=== PATIENT | female | born 1970 | race Caucasian/White ===

== ENCOUNTER 2022-03-18 08:47 | Outpatient (CLI) | payer OTHER, SELFPAY ==
[2022-03-18 19:48] LABS: CRP < 0.5 mg/dL (<1.0); Erythrocyte Sedimentation Rate 12 mm/hr (0-20)
[2022-03-18 20:04] LABS: Rheumatoid Factor < 8.6 IU/ML (<12)
[2022-03-21 12:30] LABS: Anti Cyclic Citrullinated Pept <16 Units (<20)
[2022-03-25 09:55] LABS: ANA Cascade Screen Positive (Negative)
[2022-03-25 11:23] LABS: Chromatin (Nucleosomal) Ab <1.0; RNP Antibody <1.0; Sm Antibody <1.0; Sm/RNP Antibody <1.0
[2022-03-25 13:25] LABS: Jo-1 Antibody <1.0; Sjogren's Antibody (SS-B) <1.0
== END 2022-03-18 08:48 | disposition home or self-care (01) ==
PROVIDERS: PCP Family Medicine; Visit Provider Family Medicine
DX: M25.50 Pain in unspecified joint (principal)
CPT/HCPCS: 36415; 85652; 86038; 86140; 86200; 86430

== ENCOUNTER → 2022-12-08 12:45 | Outpatient (CLI) | payer OTHER, SELFPAY ==
--- NOTE | ~2022-12-08 | MM_ITS ---
EXAMINATION: MM screening agapito BI w nicho HISTORY: Screening TECHNIQUE: Craniocaudal and mediolateral oblique 3-D tomosynthesis images were obtained and synthetic 2-D images were generated. CAD analysis was submitted and interpreted. COMPARISON: No prior mammogram is available for comparison at this institution. BREAST PARENCHYMAL COMPOSITION: The breasts are heterogeneously dense, which may obscure small masses . FINDINGS: There is no evidence of suspicious mass, calcification, or architectural distortion to sugg est malignancy in either breast. There has been no suspicious interval change. IMPRESSION: 1. No mammographic evidence of malignancy. 2. Recommend routine screening mammography in one year. BI-RADS Category 1: Negative Reviewed, dictated and finalized at location A.
== END ==
PROVIDERS: PCP Nurse Practitioner Obstetrics & Gynecology; Visit Provider Nurse Practitioner Obstetrics & Gynecology
DX: Z12.31 Encounter for screening mammogram for malignant neoplasm of breast (principal)
CPT/HCPCS: 77063; 77067

== ENCOUNTER → 2023-01-14 12:36 | Outpatient (CLI) | payer OTHER, SELFPAY | PROVIDERS: PCP Nurse Practitioner; Visit Provider Nurse Practitioner | DX: M25.561 Pain in right knee (principal); M25.562 Pain in left knee | CPT/HCPCS: 73564 ==

== ENCOUNTER 2023-02-10 07:59 | Outpatient (CLI) | payer OTHER, SELFPAY ==
[2023-02-10 15:51] LABS: Basophils Percent Auto 0.5 % (0.2-1.2); Eosinophils Absolute Auto 0.1 K/mm3 (0-0.3); Eosinophils Percent Auto 5.2 % (0-4.4); Hematocrit 39.7 % (37.0-47.0); Hemoglobin 13.4 g/dL (12.0-15.0); Immature Granulocyte Absolute 0.01 K/mm3 (0.00-0.031); Immature Granulocyte Percent A 0.5 % (0-0.5); Lymphocytes Percent Auto 33.2 % (18.3-44.2); Mean Corpuscular HGB Conc 33.8 g/dl (32-36); Mean Corpuscular Hemoglobin 30.8 pg (26-34); Mean Corpuscular Volume 91.3 fl (80-100); Mean Platelet Volume 10.3 fl (7.4-10.4); Monocytes Absolute Auto 0.3 K/mm3 (0.1-0.6); Monocytes Percent Auto 13.7 % (2.6-8.5); Neutrophils Percent Auto 46.9 % (45.5-73.1); Platelet Count Result 179 k/mm3 (150-375); Red Blood Count 4.35 M/mm3 (4.2-5.4); Red Cell Distribution Width 12.7 % (11.5-14.5); White Blood Count 2.1 K/mm3 (4.5-10.0)
[2023-02-10 16:27] LABS: Alanine Aminotransferase 23 U/L (6-35); Albumin Level 4.5 g/dL (3.5-5.1); Alkaline Phosphatase 55 U/L (38-126); Anion Gap 3 mmol/L (8-16); Aspartate Amino Transferase 37 U/L (14-36); Bilirubin,Total 0.4 mg/dL (0.2-1.3); Blood Urea Nitrogen 7 mg/dL (7-17); Carbon Dioxide 31 mmol/L (22-30); Chloride 101 mmol/L (98-107); Cholesterol 219 mg/dL (0-200); Estimated Glomerular Filt Rate > 60; Glucose 86 mg/dL (65-110); HDL Direct 50 mg/dL; Potassium 4.4 mmol/L (3.4-5.0); Sodium 135 mmol/L (137-145); Triglycerides 150 mg/dL (<150)
[2023-02-10 16:38] LABS: LDL Cholesterol Direct 114 mg/dL
[2023-02-10 16:55] LABS: Platelet Estimate Adequate (Adequate)
[2023-02-10 16:56] LABS: Ovalocytes 1+ (NORMAL); Schistocytes None Seen (NORMAL)
[2023-02-10 17:53] LABS: Vitamin D 25 Hydroxy 59.5 ng/mL
== END 2023-02-10 08:00 | disposition home or self-care (01) ==
LOC: ANHGOSHLAB 08:01
PROVIDERS: PCP Nurse Practitioner; Visit Provider Nurse Practitioner
DX: G47.9 Sleep disorder, unspecified (principal); M25.50 Pain in unspecified joint; Z13.220 Encounter for screening for lipoid disorders; Z13.21 Encounter for screening for nutritional disorder
CPT/HCPCS: 36415; 80053; 80061; 82306; 85025

== ENCOUNTER → 2023-03-01 07:45 | Outpatient (CLI) | payer OTHER, SELFPAY ==
--- NOTE | ~2023-03-01 | MR_ITS ---
EXAMINATION: MR foot RT wo con DATE: 03/01/2023 08:21 INDICATION: Right hallux ganglion cyst with prominent at the great toe. TECHNIQUE: Magnetic resonance imaging (MRI) of the right fore/mid foot was performed without intraven ous contrast. Sequences included sagittal T1-weighted FSE, sagittal fluid sensitive FSE STIR, coronal PD-weighted FS FSE, coronal T1-weighted FSE, axial PD-weighted FS FSE, and axial PD-weighted FSE. COMPARISON: None FINDINGS: Bone alignment is normal. No fracture or pathologic marrow replacing process. Mild osteoarthritis at the first metatarsophalangeal joint with small focus of subarticular edema-like signal change at the central head of the first metatarsal. There is a 12 x 4 x 4 mm homogeneously T2 hyperintense ganglion cyst arising from the medial side of the first interphalangeal joint which immediately underlies the marker indicating the lesion of concern. Visualized flexor and extensor tendons are normal. The Lisf ranc ligament complex, intertarsal ligaments and the collateral ligament complex at the metatarsophal angeal and interphalangeal joints are normal. Visualized amount fluid in the joint spaces. IMPRESSION: 1. Palpable lump of concern corresponds to a 2 x 4 x 4 mm cyst arising from the medial side of the fi rst interphalangeal joint. Reviewed, dictated and finalized at location A. IMPRESSION: 1. Palpable lump of concern corresponds to a 2 x 4 x 4 mm cyst arising from the medial side of the first interphalangeal joint.
== END ==
PROVIDERS: PCP Family Medicine; Visit Provider Podiatrist Foot & Ankle Surgery
DX: M67.471 Ganglion, right ankle and foot (principal)
CPT/HCPCS: 73718

== ENCOUNTER 2023-03-23 01:19 | Day surgery (SDC) | payer OTHER, SELFPAY ==
[2023-03-23 06:52] VITALS: BP 109/71; PULSE 80; RESP 14; TEMP 36.4; O2SAT 100
[2023-03-23] MEDS: LACTATED RINGERS 1,000 ML 150 ML IV CONT (07:07)
--- NOTE | 2023-03-23 07:54 | WPDANESEPPF ---
Anes - Initial Pre Proc Eval Procedure: Operation Date: 03/23/23 08:00 Proposed Procedures p Esophagogastroduodenoscopy & Screening Colonoscopy - Adrián Peralta MD Date/Time: 03/23/23 07:54 Surgeon: Adrián Peralta MD Pre Op Diagnosis: Abdominal distension, anorexia; neoplasm screening Patient Data Age: 52 Gender: F Height: 1.65 m Weight: 53.7 kg Last Vital Signs Temp 97.6 F 03/23/23 06:52 Pulse 80 03/23/23 06:52 Resp 14 03/23/23 06:52 BP 109/71 03/23/23 06:52 Pulse Ox 100 03/23/23 06:52 O2 Del Method Room Air 03/23/23 06:52 Allergies Allergy/AdvReac Type Severity Reaction Status Date / Time pollen extracts Allergy Unknown Verified 03/23/23 06:38 Home Medications Medication Instructions Recorded Confirmed Type multivitamin (Multiple Vitamins 1 tablet PO DAILY 02/11/22 03/15/23 History tablet) zolpidem 5 mg tablet (Ambien) 5 mg PO QHS PRN sleep #20 tabs 01/14/23 03/15/23 Rx estradiol 1 mg tablet See Rx Instructions .Route .COMPLEX 03/15/23 03/15/23 History progesterone micronized 100 mg See Rx Instructions .Route .COMPLEX 03/15/23 03/15/23 History capsule Patient hx anesthesia problems: none Family hx anesthesia problems: none Results Review: All pre-operative results and documents have been reviewed as part of the pre-operative evaluation. [facility] Past Medical History Medical History Seasonal allergies Surgical History Surgical History H/O hernia repair (~2018) Family History Family History Father Asthma Mother Diabetes mellitus Hypertension Social History Social History Smoking status: Never smoker Alcohol intake: current Drinks per week: 2 Substance use: never Substance use type: does not use Lack of Transportation: No Lack of Food: Never True Current Housing: I Have Housing Concerned About Future Housing: No Difficulty Paying Gas/Electric Bills: No Difficulty Paying for Meds: No Currently Unemployed: No Education: Bachelor's Degree Difficulty w/ Childcare or Family Care: No Living arrangements: other Additional living arrangements comments: With so Occupation/Education: occupation 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 [employer] Gender identity (if verbalized by the patient): Female Sexual Orientation (if Verbalized by the Patient): Straight or Heterosexual Anes - Eval Final PreProcedure Day of Procedure 03/23/23 07:54 Patient weight: normal Heart: regular rate and rhythm Lungs: clear to auscultation Airway: Mallampati scale class II Neurological: alert and oriented Last oral intake: >/= 8 hours ASA classification: II Emergent: no Anesthetic plan: proceed Anesthesia type and monitoring: general GIVS and standard monitoring Results Review: All pre-operative results and documents have been reviewed as part of the pre-operative evaluation. Informed Consent: The patient's anesthetic plan and its attendant risks and benefits were discussed with the patient/family/POA. Questions were solicited and answers provided to the satisfaction of the patient/family/POA.
--- NOTE | 2023-03-23 07:56 | PM.HPGS ---
History of Present Illness History of Present Illness Consent: Risks, benefits, and alternatives have been discussed and questions answered. Patient agrees to proceed with procedure. Chief complaint: Abdominal distension, anorexia; neoplasm screening Narrative: Elodia Cutler is a 52 year old female with bloating and nausea, also needs screening colonoscopy (had one in her 20's after she came back from [place]) Review of Systems Constitutional: Constitutional: Denies headache(s) and Denies weakness Eyes: Eyes: Denies blurry vision ENT: Reports Normal hearing present, Denies headache(s) and Denies neck pain Cardiovascular: Cardiovascular: Denies chest pain and Denies dyspnea Respiratory: Respiratory: Denies dyspnea Gastrointestinal: Gastrointestinal: Reports no additional gastrointestinal complaints Genitourinary: Genitourinary: Denies dysuria Musculoskeletal: Musculoskeletal: Denies neck pain Integumentary/Breasts: Skin/Breast: Denies dry skin Neurologic: Reports Normal hearing present, Denies headache(s) and Denies weakness Psychiatric: Psychiatric: Denies anxiety Endocrine: Endocrine: Denies change in body appearance Hematologic/Lymphatic: Hematologic/Lymphatic: Denies easy bleeding Allergic/Immunologic: Allergic/Immunologic: Denies urticaria PMFSH Past Medical History Medical History (Updated 03/23/23 @ 07:57 by Adrián Peralta MD) Colon cancer screening Seasonal allergies Surgical History Surgical History H/O hernia repair (~2018) Family History Family History Father Asthma Mother Diabetes mellitus Hypertension Social History Social History Smoking status: Never smoker Alcohol intake: current Drinks per week: 2 Substance use: never Substance use type: does not use Lack of Transportation: No Lack of Food: Never True Current Housing: I Have Housing Concerned About Future Housing: No Difficulty Paying Gas/Electric Bills: No Difficulty Paying for Meds: No Currently Unemployed: No Education: Bachelor's Degree Difficulty w/ Childcare or Family Care: No Living arrangements: other Additional living arrangements comments: With so Occupation/Education: occupation 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 [employer] Gender identity (if verbalized by the patient): Female Sexual Orientation (if Verbalized by the Patient): Straight or Heterosexual Meds Home Medications and Allergies Home Medications Medication Instructions Recorded Confirmed Type multivitamin (Multiple Vitamins 1 tablet PO DAILY 02/11/22 03/15/23 History tablet) zolpidem 5 mg tablet (Ambien) 5 mg PO QHS PRN sleep #20 tabs 01/14/23 03/15/23 Rx estradiol 1 mg tablet See Rx Instructions .Route .COMPLEX 03/15/23 03/15/23 History progesterone micronized 100 mg See Rx Instructions .Route .COMPLEX 03/15/23 03/15/23 History capsule Allergies Allergy/AdvReac Type Severity Reaction Status Date / Time pollen extracts Allergy Unknown Verified 03/23/23 06:38 Vital Signs Vital Signs - 24 hr 03/23/23 06:52 Temperature 97.6 F Pulse Rate 80 Respiratory Rate 14 Blood Pressure 109/71 Pulse Oximetry 100 Oxygen Delivery Room Air Exam Const: General: comfortable and no acute distress HENMT: Face/Nose/Sinus: Normal nares present Eyes: General: appearance normal, both eyes and all related structures Neck: Neck: no JVD Resp: Auscultation: clear to auscultation bilaterally Cardio: Rate: regular rate Rhythm: regular rhythm GI: Inspection: non-distended GI Palp: Yes Soft to palpation Skin: General skin exam: normal color Neuro: General: gait normal Speech: normal speech Extrem: General: normal to inspection Psych: Mental Status: mental status grossly nor
--- NOTE | 2023-03-23 08:05 | SUR.OPER ---
EGD start 804 end 807 Colonoscopy start 812
[2023-03-23 08:27] VITALS: BP 91/46; PULSE 71; RESP 17; O2SAT 100
[2023-03-23 08:37] VITALS: BP 102/62; PULSE 65; RESP 14; O2SAT 100
[2023-03-23 08:47] VITALS: BP 115/54; PULSE 68; RESP 14; O2SAT 100
== END 2023-03-23 09:00 | disposition home or self-care (01) ==
PROVIDERS: PCP Family Medicine; Visit Provider Internal Medicine Gastroenterology
PROC: 0DJ08ZZ Inspection of Upper Intestinal Tract, Via Natural or Artificial Opening Endoscopic (ICD-10-PCS; CPT 43235; principal; 2023-03-23 08:00)
DX: Z12.11 Encounter for screening for malignant neoplasm of colon (principal); R11.0 Nausea; R14.0 Abdominal distension (gaseous)
CPT/HCPCS: 45378; 43239; 88305; J2704; J7120

== ENCOUNTER 2023-04-29 15:31 | Outpatient (CLI) | payer OTHER, SELFPAY ==
[2023-04-29 18:36] LABS: Basophils Percent Auto 0.8 % (0.2-1.2); Eosinophils Percent Auto 1.6 % (0-4.4); Hematocrit 33.3 % (37.0-47.0); Hemoglobin 11.3 g/dL (12.0-15.0); Lymphocytes Absolute Auto 0.85 K/mm3 (0.9-3.2); Lymphocytes Percent Auto 33.5 % (18.3-44.2); Mean Corpuscular HGB Conc 33.9 g/dl (32-36); Mean Corpuscular Hemoglobin 30.6 pg (26-34); Mean Corpuscular Volume 90.2 fl (80-100); Mean Platelet Volume 10.5 fl (7.4-10.4); Monocytes Absolute Auto 0.3 K/mm3 (0.1-0.6); Monocytes Percent Auto 13.4 % (2.6-8.5); Neutrophils Absolute Auto 1.3 K/mm3 (1.3-6.7); Neutrophils Percent Auto 50.7 % (45.5-73.1); Platelet Count Result 165 k/mm3 (150-375); Red Blood Count 3.69 M/mm3 (4.2-5.4); Red Cell Distribution Width 13.1 % (11.5-14.5); White Blood Count 2.5 K/mm3 (4.5-10.0)
== END 2023-04-29 15:32 | disposition home or self-care (01) ==
LOC: ANHGOSHLAB 15:35
PROVIDERS: PCP Family Medicine; Visit Provider Family Medicine
DX: D72.819 Decreased white blood cell count, unspecified (principal)
CPT/HCPCS: 36415; 85025

== ENCOUNTER 2024-03-02 08:09 | Outpatient (CLI) | payer OTHER, SELFPAY ==
[2024-03-02 14:36] LABS: Basophils Percent Auto 0.9 % (0.2-1.2); Eosinophils Absolute Auto 0.1 K/mm3 (0-0.3); Hematocrit 41.8 % (37.0-47.0); Hemoglobin 13.7 g/dL (12.0-15.0); Lymphocytes Absolute Auto 0.71 K/mm3 (0.9-3.2); Lymphocytes Percent Auto 30.6 % (18.3-44.2); Mean Corpuscular HGB Conc 32.8 g/dl (32-36); Mean Corpuscular Volume 91.7 fl (80-100); Monocytes Absolute Auto 0.4 K/mm3 (0.1-0.6); Monocytes Percent Auto 16.8 % (2.6-8.5); Neutrophils Absolute Auto 1.1 K/mm3 (1.3-6.7); Neutrophils Percent Auto 48.7 % (45.5-73.1); Platelet Count Result 183 k/mm3 (150-375); Red Blood Count 4.56 M/mm3 (4.2-5.4); White Blood Count 2.3 K/mm3 (4.5-10.0)
[2024-03-02 14:42] LABS: Alanine Aminotransferase 15 U/L (6-35); Albumin Level 4.4 g/dL (3.5-5.1); Alkaline Phosphatase 50 U/L (38-126); Anion Gap 8 mmol/L (4-12); Aspartate Amino Transferase 39 U/L (14-36); Bilirubin,Total 0.3 mg/dL (0.2-1.3); Blood Urea Nitrogen 9 mg/dL (7-17); Calcium 9.3 mg/dL (8.4-10.2); Carbon Dioxide 31 mmol/L (22-30); Chloride 98 mmol/L (98-107); Cholesterol 213 mg/dL (0-200); Estimated Glomerular Filt Rate > 60; Glucose 82 mg/dL (65-110); HDL Direct 58 mg/dL; Potassium 4.9 mmol/L (3.4-5.0); Sodium 137 mmol/L (137-145); Triglycerides 80 mg/dL (<150)
[2024-03-02 14:53] LABS: LDL Cholesterol Direct 125 mg/dL
[2024-03-02 15:55] LABS: Hemoglobin A1C 5.6 % (<5.7)
[2024-03-02 16:02] LABS: Free T4 Free Thyroxine 0.92 ng/mL (0.78-2.19)
== END 2024-03-02 08:10 | disposition home or self-care (01) ==
LOC: ANHGOSHLAB 08:11
PROVIDERS: PCP Family Medicine; Visit Provider Family Medicine
DX: D64.9 Anemia, unspecified (principal); E78.5 Hyperlipidemia, unspecified; R73.9 Hyperglycemia, unspecified; R53.83 Other fatigue
CPT/HCPCS: 36415; 80053; 80061; 83036; 84439; 84443; 85025

== ENCOUNTER 2024-05-28 16:02 | Outpatient (CLI) | payer OTHER, SELFPAY ==
[2024-05-28 16:18] LABS: Basophils Percent Auto 0.3 % (0.2-1.2); Hematocrit 36.9 % (37.0-47.0); Hemoglobin 12.5 g/dL (12.0-15.0); Immature Granulocyte Absolute 0.02 K/mm3 (0.00-0.031); Immature Granulocyte Percent A 0.7 % (0-0.5); Lymphocytes Absolute Auto 0.83 K/mm3 (0.9-3.2); Lymphocytes Percent Auto 27.4 % (18.3-44.2); Mean Corpuscular HGB Conc 33.9 g/dl (32-36); Mean Corpuscular Hemoglobin 29.8 pg (26-34); Mean Corpuscular Volume 88.1 fl (80-100); Monocytes Absolute Auto 0.3 K/mm3 (0.1-0.6); Monocytes Percent Auto 10.6 % (2.6-8.5); Neutrophils Absolute Auto 1.8 K/mm3 (1.3-6.7); Platelet Count Result 201 k/mm3 (150-375); Red Blood Count 4.19 M/mm3 (4.2-5.4); Red Cell Distribution Width 12.5 % (11.5-14.5)
[2024-05-28 17:14] LABS: Alanine Aminotransferase 18 U/L (6-35); Albumin Level 4.6 g/dL (3.5-5.1); Alkaline Phosphatase 50 U/L (38-126); Anion Gap 8 mmol/L (4-12); Aspartate Amino Transferase 32 U/L (14-36); Bilirubin,Total 0.4 mg/dL (0.2-1.3); Blood Urea Nitrogen 12 mg/dL (7-17); Calcium 9.4 mg/dL (8.4-10.2); Carbon Dioxide 30 mmol/L (22-30); Chloride 100 mmol/L (98-107); Estimated Glomerular Filt Rate > 60; Glucose 96 mg/dL (65-110); Potassium 3.9 mmol/L (3.4-5.0); Sodium 138 mmol/L (137-145)
[2024-05-28 17:25] LABS: Transferrin 230 mg/dL (206-381)
[2024-05-28 17:30] LABS: Percent Iron Saturation 20 % (20-50)
[2024-05-28 18:19] LABS: Folic Acid 15.3 ng/mL (2.76->20)
[2024-05-28 18:47] LABS: Iron 56 ug/dL (37-170)
[2024-06-01 10:38] LABS: Anti Nuclear Antibody Pattern Nuclear, Speckled
[2024-06-02 04:13] LABS: Methylmalonic Acid 99 nmol/L (55-335)
== END 2024-05-28 16:03 | disposition home or self-care (01) ==
PROVIDERS: PCP Family Medicine; Visit Provider Internal Medicine Hematology & Oncology
DX: D72.819 Decreased white blood cell count, unspecified (principal); D64.9 Anemia, unspecified
CPT/HCPCS: 36415; 80053; 82607; 82728; 82746; 83540; 83550; 83921; 84466; 85025; 86038; 86039

== ENCOUNTER 2024-06-18 08:33 | Outpatient (CLI) | payer OTHER, SELFPAY ==
--- NOTE | ~2024-06-18 | US_ITS ---
COMPLETE ABDOMINAL ULTRASOUND Ordering provider: Jeffrey Hatch MD History: . LEUKOPENIA, UNSPEC TYPE . Comparison: None. FINDINGS: LIVER: Normal size and echotexture. No focal hepatic lesions or perihepatic fluid collections are uriel ntified. Normal flow of the portal vein. GALLBLADDER: Unremarkable. No evidence for stones, sludge, gallbladder wall thickening or pericholecy stic fluid collections. Wall thicknesses 0.2 cm. A negative sonographic Castro's sign was noted. BILIARY DUCTS: No evidence for intra or extrahepatic biliary dilation. Common bile duct measures 4 mm in diameter which is within normal limits. Possibility of a 2 mm stone in the CBD cannot be excluded . PANCREAS: Normal echotexture and size. SPLEEN: Normal size, echotexture and contour and measures 11.3 cm in length. KIDNEYS: Right measures 10.5x 3.7x 4.1 cm in length and the left 12.1x 4.6x 4.1 cm in length. There i s no evidence for hydronephrosis, solid renal mass, renal calculi or perinephric fluid collections. N o renal cysts. UPPER ABDOMINAL AORTA: Normal in caliber. Ureter measures 1.9 cm. IVC: Patent. FREE FLUID: None. IMPRESSION: echogenic area in the CBD which may indicate a stone. Otherwise, Unremarkable complete ultrasound of the abdomen. Reviewed, dictated and finalized at location A. O INTERFERENCE INVESTIGATOR IMPRESSION: echogenic area in the CBD which may indicate a stone. Otherwise, Unremarkable c omplete ultrasound of the abdomen.
--- OUTSIDE RECORDS SUMMARY | 2024-06-24 16:01 | XMS_ITS | Referral Summary ---
Author Organization [facility] Address [address] [place] [address] Care Team Providers Care Commercial Subcontractor Name Role Phone Angie Lowery Primary Care Provider [phone] Source Comments [facility],non-owned Affiliates and Associated Physician Practices is amultiple site organization consisting of ambulatory clinics and hospital sitesin [place], [place], [place] and [place]. This disclosure is being madepursuant to the Care Everywhere program and may not contain all information available regarding this patient. Last updated 18.[employer] [facility] Allergies No known active allergies Medications Be aware that medications may not be up to date on this document. Always verify current medications with the patient. No known medications Active Problems No known active problems Social History Tobacco Use Types Packs/Day Years Used Date Smoking Tobacco: Never Assessed Sex and Gender Information Value Date Recorded Sex Assigned at Not on file Gender Identity Not on file Sexual Orientation Not on file Last Filed Vital Signs Vital Sign Reading Time Taken Comments Blood Pressure 100/60 05/17/2022 11:17 AM COLLIERY CLERK Pulse 81 05/17/2022 11:17 AM COLLIERY CLERK Temperature 36.7 ??C (98 ??F) 05/17/2022 11:17 AM COLLIERY CLERK Respiratory Rate 16 05/17/2022 11:17 AM COLLIERY CLERK Oxygen Saturation 100% 05/17/2022 11:17 AM COLLIERY CLERK Inhaled Oxygen Concentration - - Weight 53.1 kg (117 lb) 05/17/2022 11:17 AM COLLIERY CLERK Height 167.6 cm (5' 6 ) 05/17/2022 11:17 AM COLLIERY CLERK Body Mass Index 18.88 05/17/2022 11:17 AM COLLIERY CLERK Plan of Treatment Not on file Care Teams Commercial Subcontractor Relationship Specialty Start Date End Date Angie Lowery DO [address] [place] [address] PCP - General Family Medicine 05/04/22
--- OUTSIDE RECORDS SUMMARY | 2024-06-24 16:01 | XMS_ITS | Data Portability ---
Author Organization [facility] [place] Address [address] [place] [address] Care Team Providers Care Slat Twister Name Role Phone SEAN CASTANEDA Primary Care Provider Assessment Encounter Date Assessment Date Assessment LastModified by Organization Details LastModified Time 12/07/2022 12/07/2022 Annual gynecological exam performed. Patient will come back in a year unless there are new symptoms. [email or web address] Not available 12/07/2022 12:00:33 05/28/2024 05/28/2024 Annual gynecological exam performed. Patient will come back in a year unless there are new symptoms. Not available 05/28/2024 12:04:26 Plan of Treatment Reminders Order Date Submit Date Provider Last Modified By Organization Details Last Modified Time Details Appointments None recorded. Lab hormone panel, serum or plasma 2022 023 [facility] (Lab), [address], [place], [address], 3 16:37:53 progesteron e, serum 2022 023 [facility] (Lab), [address], [place], [address], 3 16:37:52 prolactin, serum 2022 023 [facility] (Lab), [address], [place], [address], 3 16:37:52 shbg (sex hormone-bin ding globulin), serum 2022 023 [facility] (Lab), [address], [place], [address], 3 16:37:54 TSH, serum or plasma 2022 023 [facility] (Lab), [address], [place], [address], 3 16:37:53 testosteron e free/testos terone total, ratio, serum 2022 023 [facility] (Lab), [address], [place], [address], 3 16:37:54 Referral None recorded. Procedures None recorded. Surgeries None recorded. Imaging MAMMO, screening, bilateral 2022 023 [facility], [address], [facility] [address], [place], [address], 3 05:01:12 MAMMO, screening, digital, bilateral 2023 024 [facility], [address], [address], [place], [address], 4 04:03:41 Medication Orders estradiol 1 mg tablet 2022 023 [id number], [address], [place], [id number], 4 12:24:14 progesteron e micronized 100 mg capsule 2022 023 [facility][id number], [address], [place], [id number], 4 12:24:18 Phexxi 1.8 %-1 %-0.4 % vaginal gel 2022 023 [email or web address] [id number], [address] [place], [address], 4 12:05:29 CombiPatch 0.05 mg-0.14 mg/24 hr transdermal 2023 024 JENIFFER [id number], [address] [place], [address], 4 12:24:05 Patient TargetsNo targets recorded. Patient InstructionsNo instructions recorded. Reason for Referral None Reported. Results Created Date Observation Date Name Description Value Unit Range Abnormal Flag Note LastModifiedBy Organization Detail LastModifiedTime 01/30/20 22 01/29/2022 IMAGE GUIDE D PAP AND HPV REGAR DLESS image guided Pap, HPV regardless of Pap result SEE RESULT S BELOW abnormal CASE REPOR T: Cytol ogy Gynec ologi brigido Repor t Case: [id number] Autho ysa vital Provi malinda: Alayna Fuller MD Colle cted: 01/29 1322 Order ing Locat ion: [place] Patho logy Recei leticia: 01/30 0219 First Scree n: Danna Hadley ret, CT Patho logis t: Clemente Harp MD Speci men: Scree deep Pap - Image d, Cervi x STATE MENT OF ADEQU ACY: Satis facto ry for evalu ation Trans forma tion zone compo nent prese nt FINAL DIAGN OSIS: Epith elial Cell Abnor malit y, Squam ous Cell: Low Grade Squam ous Intra epith elial Lesio n (LSIL ). Elect bryson flanagan d by Clemente Harp MD on 022 at 1:12 PM ----- ----- ----- ----- ----- ----- ----- ----- ----- ----- ----- ----- ----- ----- ----- ----- ----- ---- HPV RESUL TS: HPV mRNA E6/E7 : Posit giuseppe - HPV mRNA Detec deepthi HPV GENOT YPE 16 (ADI) : Not Detec deepthi HPV GENOT YPE 18/45 (ADI) : Not Detec deepthi NOTE: This high risk HPV mRNA assay detec ts fourt een high- risk HPV types (16, 18, 31, 33, 35, 39, 45, 51, 52, 56, 58, 59, 66, 68) witho ut diffe renti ation . This assay can diffe renti ate HPV 16 from HPV 18/45 , but does not diffe renti ate betwe en HPV 18 and HPV 45. A negat giuseppe HPV 16, 18/45 genot ype assay resul t does not exclu de the possi bilit y of cytol ogic abnor malit ies or of futur e or under lying TERRANCE 1, TERRANCE 3 or cance r. COMME NT: Note: This speci men was revie wed by a Cytot echno logis t and/o r Patho logis t (as indic ated in this repor t) after evalu ation using the Thinp rep Imagi ng Syste m. CLINI BRIGIDO INFOR MATIO N: Menst rual Statu s: LMP (if appli cable ): Clini brigido Histo ry/Pr eviou s Pap: Type of Neopl lissy (if appli cable ): Signi fican t Clini brigido Findi ngs: Other Histo ry: Hormo valentin (if appli cable ): SUGFLORIDALMA STED FOLLO W-UP: Follo w up as warra nted, based on curre nt guide lines and indiv idual patie nt consi derat ions. Not Available [facility] [id number], [place], [address], 02/03/2022 14:14:40 02/23/20 22 02/22/2022 SURGI BRIGIDO PATHO LOGY surgical pathology SEE RESULT S BELOW CASE REPOR T: Surgi brigido Patho logy Repor t Case: [id number] Autho yas vital Provi malinda: Alayna Fuller MD Colle cted: 02/22 0840 Order ing Locat ion: [place] Patho logy Recei leticia: 02/23 0316 Patho logis t: Priyanka Monge MD Speci men: Endoc ervix , ECC FINAL DIAGN OSIS: Endoc ervix , curet tage: -Ecto cervi x with low-g rade squam ous intra epith elial lesio n (TERRANCE- 1). -Frag ments of endoc ervic al tissu e, negat giuseppe for dyspl lissy. Elect bryson meseretrachell masha d by Priyanka Monge MD on 2021 at 8:09 AM ----- ----- ----- ----- ----- ----- ----- ----- ----- ----- ----- ----- ----- ----- ----- ----- ----- ---- COMME NT: The previ ous Pap smear ([id number]) and HPV mRNA test resul ts are noted . CLINI BRIGIDO INFOR MATIO N: r87.6 12 MICRO SCOPI C DESCR IPTIO N: A micro scopi c exami natio n was perfo rmed. GROSS DESCR IPTIO N: A. Endoc ervix . The speci men is label ed with the patie nt's name, demog raphi cs and ECC . Recei leticia in forma marivel is a 1.0 x 1.0 x 0.[address] of mucus and dark red tissu e. The entir e speci men is submi tted in one casse tte. Gross ed by Yael merino Not Available [facility] [address] [place], [address], 02/24/2022 09:11:52 08/12/19 23 08/12/2022 PROGE STERO NE progesterone 0.36 NG/mL This assay was perfo rmed using [employer] ratio n reage nts and test kits. Value s obtai germain with other assay metho ds or kits canno t be used inter [facility] . Femal e Proge stero ne Range s: Folli cular phase 0.06- 0.89 ng/mL Ovula tion phase 0.12- 12.00 ng/mL Lutea l phase 1.83- 23.90 ng/mL Postm enopa usal< 0.05- 0.13 ng/mL Healt hy Pregn ant Women 1st Trime ster1 1.0-4 4.30 2nd Trime ster2 5.40- 83.30 3rd Trime ster5 8.70- 214.0 0 Not Available [facility] (Lab) [address] [place], [address], 08/17/2022 16:37:51 08/12/19 23 08/12/2022 PROLA CTIN prolactin, total 12.80 NG/mL 4.79-2 3.30 This assay was perfo rmed using [employer] ratio n reage nts and test kits. Value s obtai germain with other assay metho ds or kits canno t be used inter [facility] . Not Available [facility] (Lab) [address] [place], [address], 08/17/2022 16:37:52 08/12/19 23 08/12/2022 FSH, LH, ESTRA DIOL estradiol 10.9 pg/mL This assay was perfo rmed using [employer] ratio n reage nts and test kits. Value s obtai germain with other assay metho ds or kits canno t be used inter [facility] . Femal e Estra diol Range s: Folli cular phase 12.4- 233 pg/mL Ovula tion phase 41.0- 398 pg/mL Lutea l phase 22.3- 341 pg/mL Postm enopa usal< 5-138 pg/mL Healt hy Pregn ant Women 1st Trime ster1 54-32 43 pg/mL 2nd Trime ster1 561-2 1280 pg/mL 3rd Trime ster8 525-> 21246 pg/mL Not Available [facility] (Lab) [address], [place], [address], 08/17/2022 16:37:53 08/12/19 23 08/12/2022 FSH, LH, ESTRA DIOL FSH 60.6 mIU/m L This assay was perfo rmed using [employer] ratio n reage nts and test kits. Value s obtai germain with other assay metho ds or kits canno t be used inter [facility] . Femal es Folli cular : 3.5-1 2.5 mIU/m L Ovula tion: 4.7-2 1.5 mIU/m L Lutea l: 1.7-7 .7 mIU/m L Postm enopa use: 25.8- 134.8 mIU/m L Not Available [facility] (Lab) [address], [place], [address], 08/17/2022 16:37:53 08/12/19 23 08/12/2022 FSH, LH, ESTRA DIOL LH 33.8 mIU/m L This assay was perfo rmed using [employer] ratio n reage nts and test kits. Value s obtai germain with other assay metho ds or kits canno t be used inter wills eay . Femal es Mid-F ollic ular: 2.4-1 2.6 mIU/m L Mid-C ycle: 14.0- 95.6 mIU/m L Mid-L uteal : 1.0-1 1.4 mIU/m L Postm enopa use: 7.7-5 8.5 mIU/m L Not Available [facility] (Lab) [address], [place], [address], 08/17/2022 16:37:53 08/12/19 23 08/12/2022 TSH, REFLE X FREE T4 TSH 2.79 uIU/m L 0.30-5 .33 Not Available [facility] (Lab) [address], [place], [address], 08/17/2022 16:37:53 08/12/19 23 08/12/2022 HUMAN SEX HORMO NE NEELAM NG CARYL ARRIETA sex hormone binding globulin 86.2 nmole s/L 16.8-1 25.2 Not Available [facility] (Lab) [address], [place], [address], 08/17/2022 16:37:54 08/12/19 23 08/12/2022 TESTO STERO NE, FREE( DIALY SIS) AND TOTAL (LC/M S/MS) testosterone , total 8 NG/dL 2-45 For addit ional chana boyd refer to http: //anne-marie handley.que stdia gnost ics.c om/fa q/Tot alTkevin Sylvester CMSMS (This link is being provi ded for rodney stinson/ educdiego [place] l purpo ses only. ) This test was devel oped and its isela tical perfo rmanc e lisa cteri stics have been deter mined by [employer] ostic [employer]. It has not been clear ed or appro leticia by the FDA. This assay has been valid ated pursu ant to the CLIA regul ation s and is used for clini brigido purpo ses. Not Available [facility] (Lab) [address], [place], [address], 08/17/2022 16:37:54 08/12/19 23 08/12/2022 TESTO STERO NE, FREE( DIALY SIS) AND TOTAL (LC/M S/MS) testosterone , free 0.7 pg/mL 0.1-6. 4 This test was devel oped and its isela tical perfo rmanc e lisa cteri stics have been deter mined by [employer] ostic [employer]. It has not been clear ed or appro leticia by the FDA. This assay has been valid ated pursu ant to the CLIA regul ation s and is used for clini brigido purpo ses. Perfo rming Organ izati on Rodney handley: Site ID: [id number] Name: [facility] Addre ss: [id number] [address] [facility] [place] [address] Direc tor: Fiorella padilla M.D. 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 Lisa flanagan d by Olena Mahmood, CT on 2022 at 7:14 AM ----- ----- ----- ----- ----- ----- ----- ----- ----- ----- ----- ----- ----- ----- ----- ----- ----- ---- HPV RESUL TS: HPV mRNA E6/E7 : No HPV mRNA Detec deepthi NOTE: This high risk HPV mRNA assay detec ts fourt een high- risk HPV types (16, 18, 31, 33, 35, 39, 45, 51, 52, 56, 58, 59, 66, 68) witho ut diffe renti ation . COMME NT: This speci men was revie wed by a Cytot echno logis t and/o r Patho logis t (as indic ated in this repor t) after evalu ation using the Thinp rep Imagi ng Syste m. CLINI BRIGIDO INFOR MATIO N: Menst rual Statu s: LMP (if appli cable ): Clini brigido Histo ry/Pr eviou s Pap: Type of Neopl lissy (if appli cable ): Signi fican t Clini brigido Findi ngs: Other Histo ry: Hormo valentin (if appli cable ): PAP EDUCA SARATH L NOTE: The Pap Test is a scree deep test with an inher ent false negat giuseppe rate. Liqui d-bas ed sampl ing may decre ase, but will not elimi dawna, false negat giuseppe resul ts. A negat giuseppe resul t does not precl ude the prese nce and/o r devel opmen t of disea se, since the prese nce of abnor mal cells in the sampl e depen ds on the locat ion of the lesio n and sampl ing techn ique. Kemal nued regul ar scree deep is the best metho d of cance r preve ntion . If repor deepthi cytol ogic findi ng do not corre late with physi brigido and/o r histo rical findi ngs, furth er inves tigat ion is recom adele d, as clini riri smith nted. Not Available [facility] (Lab) [address], [place], [address], 12/12/2022 08:18:28 05/28/20 24 05/28/2024 IMAGE GUIDE D PAP AND HPV REGAR DLESS image guided Pap, HPV regardless of Pap result SEE RESULT S BELOW CASE REPOR T: Cytol ogy Gynec ologi brigido Repor t Case: [id number] Autho yas g Provi malinda: Sherry Oliva NP Colle cted: 05/28 1419 Order ing Locat ion: [place] Patho logy Recei leticia: 05/29 0209 First Scree n: McBri de, Danna ret, CT Speci men: Scree deep Pap - Image d, Cervi x STATE MENT OF ADEQU ACY: Satis facto ry for evalu ation Trans forma tion zone compo nent prese nt ----- ----- ----- ----- ----- ----- ----- ----- ----- ----- ----- ----- ----- ----- ----- ----- ----- ---- FINAL DIAGN OSIS: Negat giuseppe for Intra epith elial Lesio ender or Deion simmons (NIL) . Elect bryson flanagan d by Danna Hadley ret, CT on 2023 at 4:45 PM ----- ----- ----- ----- ----- ----- ----- ----- ----- ----- ----- ----- ----- ----- ----- ----- ----- ---- HPV RESUL TS: HPV mRNA E6/E7 : No HPV mRNA Detec deepthi NOTE: This high risk HPV mRNA assay detec ts fourt een high- risk HPV types (16, 18, 31, 33, 35, 39, 45, 51, 52, 56, 58, 59, 66, 68) witho ut diffe renti ation . COMME NT: This speci men was revie wed by a Cytot echno logis t and/o r Patho logis t (as indic ated in this repor t) after evalu ation using the Thinp rep Imagi ng Syste m. CLINI BRIGIDO INFOR MATIO N: Menst rual Statu s: LMP (if appli cable ): Clini brigido Histo ry/Pr eviou s Pap: Type of Neopl lissy (if appli cable ): Signi fican t Clini brigido Findi ngs: Other Histo ry: Hormo valentin (if appli cable ): PAP EDUCA SARATH L NOTE: The Pap Test is a scree deep test with an inher ent false negat giuseppe rate. Liqui d-bas ed sampl ing november decre ase, but will not elimi dawna, false negat giuseppe resul ts. A negat giuseppe resul t does not precl ude the prese nce and/o r devel opmen t of disea se, since the prese nce of abnor mal cells in the sampl e depen ds on the locat ion of the lesio n and sampl ing techn ique. Kemal nued regul ar scree deep is the best metho d of cance r preve ntion . If repor deepthi cytol ogic findi ng do not corre late with physi brigido and/o r histo rical findi ngs, furth er inves tigat ion is recom adele d, as clini riri luis nted. Not Available [facility] (Lab) [address], [place], [address], 06/07/2024 17:51:54 03/16/20 22 03/06/2022 MAMMO , scree deep, bilat eral No observ ation record ed. [facility] [address], [place], [address], 03/19/2022 12:04:16 12/09/19 23 12/08/2022 MAMMO , scree deep, bilat eral No observ ation record ed. [email or web address] [address], [place], [address], 04/21/2023 15:01:51 Result Notes None recorded. Procedures Surgical History Date Name Laterality Status Provider Name and Address Organization Details Recorded Time 05/28/20 24 Date of Last Pap Smear completed Talya Farooq [facility] 05/28/2024 13:11:21 12/09/19 23 Date of Last Mammogram completed Talya Farooq [facility] 05/28/2024 12:07:49 08/26/19 23 IUD Removal completed Troy Fuller MD [address], [place], [address], [facility] 08/26/2022 23:40:32 02/23/20 22 Colposcopy completed [facility] 05/28/2024 12:07:12 02/23/20 22 Colposcopy completed [facility] 05/28/2024 12:10:54 02/21/20 22 Colposcopy completed Troy Fuller MD [address], [place], [address], [facility] 02/21/2022 19:08:37 07/04/19 16 hernia repair completed [facility] 05/28/2024 12:09:43 07/04/19 16 stripping of vein completed [facility] 05/28/2024 12:09:47 07/04/18 86 mastoidectomy completed [facility] 05/28/2024 12:10:16 07/04/18 86 extraction of wisdom tooth completed [facility] 05/28/2024 12:10:25 07/04/18 81 Tonsillectomy completed [facility] 05/28/2024 12:10:39 Imaging Results Imaging Date Name Status LastModified by Organiz ation Details LastModified Time 03/06/2022 MAMMO, screening, bilateral completed JENIFFER [facility] [address], [place], [address], 03/19/2022 12:04:16 12/08/2022 MAMMO, screening, bilateral completed [email or web address] [address], [place], [address], 04/21/2023 15:01:51 Procedure Notes None recorded. Medical Equipment None Reported. Allergies No known drug allergies Medications Name Sig Start Date Stop Date Status Note LastModified by Organization Details LastModified Time CombiPatch 0.05 mg-0.14 mg/24 hr transdermal Apply 1 patch twice a week by transderm al route. active Not Available Not Available No t Available estradiol 1 mg tablet TAKE 1 TABLET BY MOUTH EVERY DAY 2023 active Not Available Not Available Not Avai lable zolpidem 5 mg tablet TAKE 1 TABLET BY MOUTH AT BEDTIME NEEDED FOR SLEEP NOT TO BE TAKEN DAILY active Not Available Not Available No t Available estradiol 0.5 mg tablet Take 1 tablet every day by oral route with meals for 90 days. 05/28 completed Not Available Not Available Not Available diazepam 5 mg tablet ONE TABLET BY MOUTH TWICE A DAY NEEDED FOR SEDATION 12/07 completed Not Available Not Available Not Available progesteron e micronized 100 mg capsule TAKE 1 CAPSULE BY MOUTH EVERY DAY 05/28 completed Not Available Not Available Not Available progesteron e 12/07 completed Not Available Not Available Not Available multivitami n active Not Available Not Available Not Available Phexxi 1.8 %-1 %-0.4 % vaginal gel Insert 1 applicato rful every day by vaginal route as needed. 05/28 completed Not Available Not Available Not Available Vitals Date Recorded Body height Body mass index (BMI) Body weight Systolic blood pressure Diastolic blood pressure Provider Name and Address Organization Details Last Updated DateTime 02/20/2022 165.1 cm 19.3 kg/m2 48333.71 g 114 mm[Hg] 75 mm[Hg] Precious Clifford [facility] 2 09:35:05 Date Recorded Body height Body mass index (BMI) Body weight Systolic blood pressure Diastolic blood pressure Provider Name and Address Organization Details Last Updated DateTime 08/05/2022 165.1 cm 20.3 kg/m2 52037.27 g 101 mm[Hg] 68 mm[Hg] Larissa Orlando [facility] 3 12:32:16 Date Recorded Body height Body mass index (BMI) Body weight Systolic blood pressure Diastolic blood pressure Provider Name and Address Organization Details Last Updated DateTime 08/26/2022 165.1 cm 20 kg/m2 20438.08 g 124 mm[Hg] 75 mm[Hg] Larissa Orlando [facility] 3 11:53:25 Date Recorded Body height Body mass index (BMI) Body weight Systolic blood pressure Diastolic blood pressure Provider Name and Address Organization Details Last Updated DateTime 12/07/2022 165.1 cm 19.8 kg/m2 32298.49 g 97 mm[Hg] 62 mm[Hg] Zeenat Parson [facility] 3 12:01:16 Date Recorded Body height Body mass index (BMI) Body weight Systolic blood pressure Diastolic blood pressure Provider Name and Address Organization Details Last Updated DateTime 05/28/2024 165.1 cm 20.5 kg/m2 82441.86 g 108 mm[Hg] 71 mm[Hg] Talya Farooq [facility] 4 12:05:04 Social History Question Answer Notes LastModified by Organizat ion Details LastModified Time Tobacco Smoking Status Unknown If Ever Smoked Talya Farooq [facility], [facility] 05/28/2024 12:09:16 Do You Have An Advance Directive? No Information not available 01/29/2022 What Is Your Level Of Alcohol Consumption? Occasional Information not available 01/29/2022 How Many Years Have You Consumed Alcohol? 30 Information not available 01/29/2022 Are You Blind Or Do You Have Difficulty Seeing? No Information not available 01/29/2022 What Is Your Level Of Caffeine Consumption? Moderate Information not available 01/29/2022 In The 14 Days Before Symptom Onset, Have You Had Close Contact With A Laboratory-confir med COVID-19 While That Case Was Ill? No Information not available 01/29/2022 In The 14 Days Before Symptom Onset, Have You Had Close Contact With A Person Who Is Under Investigation For COVID-19 While That Person Was Ill? No Information not available 01/29/2022 Have You Been To An Area Known To Be High Risk For COVID-19? No Information not available 01/29/2022 Are You Deaf Or Do You Have Serious Difficulty Hearing? No Information not available 01/29/2022 What Type Of Diet Are You Following? VEGETARIAN Information not available 01/29/2022 What Is The Highest Grade Or Level Of School You Have Completed Or The Highest Degree You Have Received? 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 No Information not available 01/29/2022 Do You Use Protection During Sex? Always Information not available 01/29/2022 Do You Use Your Seat Belt Or Car Seat Routinely? Yes Information not available 01/29/2022 Do You Have Smoke And Carbon Monoxide Detectors In Your Home? Yes Information not available 01/29/2022 How Much Tobacco Do You Smoke? No Information not available 01/29/2022 Do You Feel Stressed (tense, Restless, Nervous, Or Anxious, Or Unable To Sleep At Night)? [id number] Information not available 01/29/2022 Do You Use Any Illicit Or Recreational Drugs? No Information not available 01/29/2022 Do You Use Sunscreen Routinely? Yes Information not available 01/29/2022 Has Tobacco Cessation Counseling Been Provided? No [email or web address] Information not available 05/28/2024 Have You Used IV Drugs? No Information not available 01/29/2022 Do You Or Have You Ever Used Any Other Forms Of Tobacco Or Nicotine? No [email or web address] Information not available 05/28/2024 Sex: Unknown Functional Status Question Answer Note LastModified by Organizat ion Details LastModified Time Do you have difficulty walking or climbing stairs? No Information not available 05/28/2024 Are you able to walk? YESWOREST Information not available 01/29/2022 Are you able to care for yourself? Yes [email or web address] Information not available 05/28/2024 Do you have difficulty dressing or bathing? No [email or web address] Information not available 05/28/2024 What is your exercise level? Moderate Information not available 01/29/2022 Mental Status None recorded. Family History Nothing Reported. Medical History Condition Response Allergies (Food, seasonal, environmental ) Y Other Y Drug/Latex Allergies/Reactions N Blood Transfusion N Breast Cancer N Dermatologic Disorders N Lung Disease N Defects or Inherited Disease N Breast Problem Y Gestational Diabetes N Hematologic disorders N Anesthesia Complications N History of STI Y Deep Vein Thrombosis N Polycystic ovary syndrome N Anxiety Disorder N Autoimmune disease N Arthritis N Polyps N Infertility N Acid Reflux (GERD) N History of abnormal pap Y Cancer N Varicosities N Stroke N Neurologic/Epilepsy N Endometriosis N High Cholesterol N Fibromyalgia N Headaches N Kidney Disease N Heart Problems N Thyroid Problems N Kidney or Bladder Problems N GI Problems N Eating Disorder N Anemia N Art (IVF or FET) N Psychiatric Illness N Ovarian Cancer N Diabetes N Pulmonary (TB, Asthma) N Hepatitis/Liver Disease N No Past Medical History N Eczema N Urinary Tract Infection N Abuse/Domestic Violence N Asthma N Trauma/Violence N Depression/ depression N Heart Disease N Pre-Eclampsia N Hypertension N Osteoporosis N Thrombophilias N Gynecological History Statement/Question Response Abnormal Pap Yes Date of Last Mammogram 12/08/2022 Flow Moderate Date of LMP 11/21/2022 On BCP's at Conception? N N Was last menstrual period normal N STIs/STDs Y HPV Vaccine N Colposcopy 02/22/2022 Current Control Method Menopause Age at First Child 25 Date of Last Colonoscopy Sexually Active? Y Menses Monthly N Date of DEXA bone scan Age of first menstrual cycle 13 Date of Last Pap Smear 05/28/2024 Sexual Problems? N LMP Definite Y Obstetrics History GPAL:G 2 P 0 2 0 2 Type Value Premature 2 Living 2 Total 2 Past Encounters Encounter ID Performer Location Encounter Start Date Encounter Closed Date Diagnosis/Indication Diagnosis SNOMED-CT Code Diagnosis ICD10 Code [id number] MD Jeff Lu [address] [address] 01/29/2022 12:19:11 01/29/2022 14:34:37 Gynecologic examination 98853639 Z01.419 [id number] MD Jeff Lu [address] [address] 02/20/2022 09:20:50 02/22/2022 15:04:51 Abnormal cervical Papanicolaou smear [id number] R87.619 [id number] Troy Fuller MD [facility] [address],[place] [address] 08/05/2022 11:58:59 08/05/2022 13:39:06 Abnormal uterine bleeding [id number] 9100 N93.9 Menopausal symptom 30163 002 N95.1 Contracept ion care management [id number] Z30.9 [id number] Troy Fuller MD [facility] [address],[place] [address] 08/26/2022 11:42:04 08/27/2022 09:56:50 Menopausal symptom 96161522 N95.1 [id number] Lucina Blanco [facility] [address],[place] [address] 12/07/2022 11:46:10 12/07/2022 12:43:25 Gynecologic examination 73186331 Z01.419 Screening mammography 24 369161 Z12.31 Contracept ion care management 183640625 Z30.9 [id number] Sherry Oliva [facility] [address],[place] [address] 05/28/2024 11:51:50 05/28/2024 13:20:41 Gynecologic examination 04558698 Z01.419 Screening for malignant neoplasm of breast 918612188 Z12.39 Hormone re placement therapy 612762005 Z79.890 Health Concerns Section Related Observation LastModified by Organization Detai ls LastModified Time None Recorded Concern Status LastModified by Organization Details LastModified Time None Recorded Advance Directives Directive N: Payers Encounter Date Sequence Insurance Name Policy Number Policy Santiago Covered Member ID Santiago Member ID Guarantor Name 02/20/2022 1 [employer] [id number] Elodia Cutler [id number] Elodia Cutler 08/05/2022 1 [employer] - OPEN ACCESS PLUS [id number] Elodia Cutler [id number] Elodia Cutler 08/26/2022 1 [employer] - OPEN ACCESS PLUS [id number] Elodia Cutler [id number] Elodia Cutler 12/07/2022 1 [employer] - OPEN ACCESS PLUS [id number] Elodia Cutler [id number] Elodia Cutler 05/28/2024 1 [facility] [id number] Elodia Cutler [id number] Elodia Cutler Notes Date Note Type Note Provider Name and Address Organization Details Recorded Time 2 text/html Patient presents for colposcopic examination. She had a mildly abnormal Pap smear. Troy Fuller MD [address], [place], [address], [facility] 02/21/2022 19:09:22 3 text/html This patient is a 51-year-old female who presents for contraceptive care management and menopause. She has concerns about contraception. She has an IUD placed. She is not sure if she is fully and menopause and has no risk of getting . She is using hormone replacement therapy as topical creams. Id a compound did at a pharmacy. We spent more than 20 minutes [id number]. More than 50% was counseling. Talked about IUD removal and whether was prudent to not. This time we have no confirmation that she is in menopause and that no risk of getting so we will try to confirm that with labs. She is going to discontinue her hormone replacement therapy for a week and get labs drawn. Troy Fuller MD [address], [place], [address], [facility] 08/05/2022 13:31:22 3 text/html 51-year-old female who presents for follow-up on menopausal symptoms. She has an IUD. We checked labs. She was very postmenopausal on her laboratory evaluation. We agreed to remove IUD. She has not had menses in 2 years. . We agreed to remove IUD. Was removed without complications. Talked about hormone replacement therapy. She uses topical creams historically for progesterone and estrogen. These are compound. We talked about that. I prescribed a compound did medications. There we talked about is prescribed oral medications and agreed to that. We 20 minutes [id number]. More than 50% was counseling. We removed IUD. She tolerated it well. Troy Fuller MD [address], [place], [address], [facility] 08/26/2022 23:41:09 3 text/html Annual GYNReported bypatient.Menstrual cycle:Perimenopausal(??Me nopause) Urinary symptoms:No hematuria; No incontinence Vulva:No genital lesion Vagina:Normal vaginal discharge Breast:No breast pain; No breast lump; No nipple discharge Current Contraception:Condoms Sexual complaints:No sexual complaints; No pain during intercourse; Normal libido Menopausal Symptoms:No menopausal symptoms; Normal vaginal lubrication Psychological symptoms:No depression; No anxiety; No PMDD Preventive measures:Encourage self breast examination; Encourage regular exercise; Encourage no tobacco use; Encourage regular mammograms starting age 40; History of abnormal pap smear/cervical dysplasia; Needs to schedule mammogram; Up to date on colonoscopy screening ELDA Chaudhry- [address], [place], [address], [facility] 12/07/2022 12:43:18 4 text/html Annual Manager Floral Post-MenopausalReported bypatient.Menopausal Symptoms:no menopausal symptoms; normal vaginal lubrication Vaginal Bleeding:history of menopause having occurred; no history of post menopausal bleeding Urinary Symptoms:no hematuria; no incontinence; no nocturia; no urinary frequency Vulva:no genital lesion; no vulvar atrophy Vagina:normal vaginal discharge; no vaginal atrophy Breast:no breast lump; no nipple discharge; no breast pain Sexual Complaints:no sexual complaints Psychological Symptoms:no depression; no anxiety Preventive Measures:encourage regular mammograms starting age 40; encourage self breast examination; encourage regular exercise; encourage no tobacco useNotes:53yo wwepostmenopausallast pap 11/2022 : nilm, HPV (-)pap 01/29/2022 : LSIL, HPV (+)colpo 02/2022: TERRANCE 1 mammogram last olonoscopy 2022 LMP 1 yr agoon HRT, hot flashes controlled ELDA Marcelino [address], [place], [address], [facility] 05/28/2024 13:15:11 OBGyn Episode Ob Episode Information Episode Created Date Number of Fetuses Patient Bloodtype Patient rh Status Prepregnancy Weight lbs Domestic Partner Domestic Partner Phone Father Name Twister In Status 01/30/20 22 1 CLOSED Fetus Data First Name Last Name Admitted to NICU Weight (g) Sex Living Outcome Pediatric Complications Fetus ID Race Codes Race Delivery Type 2721.55 2 [place] [id number] Vaginal Delivery Armen Calculation ARMEN Calculation Method Initial Armen Date Initial Exam Date Initial Exam Provider Initial Ultrasound Date Last Menstrual Period Date Ultra Sound Weeks Gestation Conception by IVF Embryo Age at Transfer Date of Transfer 0 Eighteen To Twenty Week Armen Update Ultra Sound Date Fundal Height At Umbil Quickening Date Ultra Sound Latest Weeks Gestation Final Armen Confirmed By Final Armen Confirmed Date Final Armen Date Ultra Sound Latest Days Gestation 0 0 Menstrual History Last Menstrual Date Menses Monthly On Bcp Conception Prior Menses Frequency Hcg Plus Date Menarche Onset Age Delivery Information Delivery Date Delivery Type Labor Anesthesia Weeks Gestation Incision Type Labor Labor Length Hrs Delivered By Post Complications Tubal Sterilization Discharge Date Comments 7 Ramakrishna Discharge Information Feeding Method Contraceptive Method Maternal HG B and HCT Levels Ob Episode Information Episode Created Date Number of Fetuses Patient Bloodtype Patient rh Status Prepregnancy Weight lbs Domestic Partner Domestic Partner Phone Father Name Twister In Status 01/30/20 22 1 CLOSED Fetus Data First Name Last Name Admitted to NICU Weight (g) Sex Living Outcome Pediatric Complications Fetus ID Race Codes Race Delivery Type 2551.45 5 F Prematur e [id number] Vaginal Delivery Armen Calculation ARMEN Calculation Method Initial Armen Date Initial Exam Date Initial Exam Provider Initial Ultrasound Date Last Menstrual Period Date Ultra Sound Weeks Gestation Conception by IVF Embryo Age at Transfer Date of Transfer 0 Eighteen To Twenty Week Armen Update Ultra Sound Date Fundal Height At Umbil Quickening Date Ultra Sound Latest Weeks Gestation Final Armen Confirmed By Final Armen Confirmed Date Final Armen Date Ultra Sound Latest Days Gestation 0 0 Menstrual History Last Menstrual Date Menses Monthly On Bcp Conception Prior Menses Frequency Hcg Plus Date Menarche Onset Age Delivery Information Delivery Date Delivery Type Labor Anesthesia Weeks Gestation Incision Type Labor Labor Length Hrs Delivered By Post Complications Tubal Sterilization Discharge Date Comments 9 36 Yuli Discharge Information Feeding Method Contraceptive Method Maternal HG B and HCT Levels
--- OUTSIDE RECORDS SUMMARY | 2024-06-24 16:01 | XMS_ITS | Encounter Summary ---
Author Organization [facility] Address [address] [place] [address] Care Team Providers Care Dot Compliance Coordinator Name Role Phone Angie Lowery Primary Care Provider [phone] Reason for Visit * Reason Comments Establish Care +GLYNN, +SSA, knee eff usions, polyarthalgia. Has Knee Xray CD here. Encounter Details Date Type Department Care Team (Latest Contact Info) Description 05/17/2022 11:20 AM EXECUTIVE SALES MANAGER Office Visit [facility] - Rheumatology [address], [address] [place] [address] Adryan Blum DO [address] [place] [address] Sjogren's syndrome with keratoconjunctivitis sicca (CMS/HCC) GLYNN+, anti-SSA + >8.0 (Primary Dx); Pain and swelling of knee, unspecified laterality Social History Tobacco Use Types Packs/Day Years Used Date Smoking Tobacco: Never Assessed Sex and Gender Information Value Date Recorded Sex Assigned at Not on file Gender Identity Not on file Sexual Orientation Not on file documented as of this encounter Last Filed Vital Signs Vital Sign Reading Time Taken Comments Blood Pressure 100/60 05/17/2022 11:17 AM EXECUTIVE SALES MANAGER Pulse 81 05/17/2022 11:17 AM EXECUTIVE SALES MANAGER Temperature 36.7 ??C (98 ??F) 05/17/2022 11:17 AM EXECUTIVE SALES MANAGER Respiratory Rate 16 05/17/2022 11:17 AM EXECUTIVE SALES MANAGER Oxygen Saturation 100% 05/17/2022 11:17 AM EXECUTIVE SALES MANAGER Inhaled Oxygen Concentration - - Weight 53.1 kg (117 lb) 05/17/2022 11:17 AM EXECUTIVE SALES MANAGER Height 167.6 cm (5' 6 ) 05/17/2022 11:17 AM EXECUTIVE SALES MANAGER Body Mass Index 18.88 05/17/2022 11:17 AM EXECUTIVE SALES MANAGER documented in this encounter Patient Instructions * Patient Instructions* Adryan Blum DO - 05/17/2022 12:13 PM EXECUTIVE SALES MANAGER ICD-10-CM 1. Sjogren's syndrome with keratoconjunctivitis sicca (CMS/HCC) GLYNN+, anti-SSA + >8.0 M35.01 2. Pain and swelling of knee, unspecified laterality Temporary M25.569 M25.469 Sjogren's syndrome with keratoconjunctivitis sicca (CMS/HCC) GLYNN+, anti-SSA + >8.0 (Primary) Comments: Would explain dry eyes and developing dry mouth but would not explain intermittent knee swelling and suspect hand symptoms either CTS(R) and/or Osteoarthritis. Would follow up with ecmo specialist and might be a candidate for either Restasis or Xiidra eye drops to help with inflammation but should continue use of preservative free artificial tears as much aspossible to avoid corneal abrasions and help with dry sensation. No specific need to go forward with confirmatory minor salivary gland lip biopsy ( Gold standard ) to confirm primary Sjogren's syndrome since it will not change treatment approach at this time whichis mainly for symptomatic eye dryness however if other symptoms develop including symptoms of inflammatory hand arthritis, cough, shortness of breath, rash, or blood count abnormalities then further work up and follow up would be encouraged. Pain and swelling of knee, unspecified laterality Comments: Episodes of prior painful knee swelling and prior Dx of a Browne's cyst . Uncertain nature of swelling (joint fluid analysis would be helpful) but could consider intermittent hydraarthrosis. UTIVE SALES MANAGER documented in this encounter Progress Notes * Adryan Blum DO - 05/17/2022 11:20 AM CST RHEUMATOLOGY INITIAL OFFICE ENCOUNTER NOTE 05/17/2022 REFERRING PHYSICIAN/PROVIDER: Angie Lowery DO [address] [place] [address] REASON FOR CONSULT: Chief Complaint Patient presents with ??? Establish Care +GLYNN, +SSA, knee effusions, polyarthalgia. Has Knee Xray CD here. HISTORY OF PRESENTING ILLNESS: Elodia Cutler is a 51 year old female who was referred to [facility] rheumatology for evaluation of the detection of a positive GLYNN and strongly positive anti SSA antibody apparently performed as part of an evaluation regarding intermittent painful right knee swelling. She does report at least 2 e pisodes of painful swelling of both knees initially in 2020 while she was visiting her daughter in [place] where she was diagnosed with a ???Browne cyst?? and then upon return had received intra-articular knee steroid injection with good relief of her symptoms. Again this past March again experienced pain and perhaps swelling in both knees and received intra-articular steroid injection again with relieving effectiveness. She has had no previous arthrocentesis for synovial fluid evaluation to determine if she has been developing noninflammatory versus inflammatory knee effusions which certainly would be helpful in developing the differential diagnosis. Her recent sedimentation rate C-reactive protein were both unremarkable. She does describe longstanding symptoms of ocular dryness generally using loyo-ewc-bklumfx artificial tears and has never had any previous complications with corneal abrasions for possible underlying keratoconjunctivitis sicca. Has also noted some increasing a oral dryness question when she awakens in the morning but without any previous episodes of unexplained parotid and or submandibular gland enlargement. Does note some occasional pain in the hands and intermittent ???numbness?? of the right hand but has attributed this to some of her yoga exercises. Outside records review: Outside records received by fax and reviewed from referring office of Angie Lowery DO included chart note dated 03/18/2022 and 03/24/2022. Patient had presented for bilateral steroid injections into both knees before traveling to [place]. She had reported previous significant response with relief of joint pain following steroid injections. Reportedly x-rays have revealed adequate joint space but appearance of bilateral knee effusions. Patient had ???autoimmune labs?? drawn 1 week previously due to symptoms of polyarthralgia and all were unremarkable except presence of a positive GLYNN. Laboratory testing collected 03/18/2022 included positive antinuclear antibody and strongly positive anti SSA antibody > 8.0 otherwise negative anti SSB antibody, anti Mejia antibody, anti ANIMAL SHELTER CLERK antibody, anti SM/ANIMAL SHELTER CLERK antibody, anti Scl 70 antibody, anti DNA antibody, anti chromatin antibody and anti Bernie 1 antibody. Anti CCP antibody negative. Additional test orders for rheumatoid factor CRP and sedimentation rate results were not made available. REVIEW OF SYSTEMS: ROS See pertinent positive and/or negative in HPI PAST MEDICAL HISTORY: No past medical history on file. PAST SURGICAL HISTORY: No past surgical history on file. FAMILY HISTORY: No family history on file. No Known Allergies Social History Socioeconomic History ??? Marital status: Single Spouse name: Not on file ??? Number of children: Not on file ??? Years of education: Not on file ??? Highest education level: Not on file Occupational History ??? Not on file Tobacco Use ??? Smoking status: Not on file ??? Smokeless tobacco: Not on file Substance and Sexual Activity ??? Alcohol use: Not on file ??? Drug use: Not on file ??? Sexual activity: Not on file Other Topics Concern ??? Not on file Social History Narrative ??? Not on file Social Determinants of Health Financial Resource Strain: Not on file Food Insecurity: Not on file Transportation Needs: Not on file Physical Activity: Not on file Stress: Not on file Social Connections: Not on file Intimate Partner Violence: Not on file Housing Stability: Not on file There is no immunization history on file for this patient. No current outpatient medications on file. No current facility-administered medications for this visit. VITALS: Wt Readings from Last 3 Encounters: 05/17/22 53.1 kg (117 lb) Temp Readings from Last 3 Encounters: 05/17/22 98 ??F (36.7 ??C) (Skin) BP Readings from Last 3 Encounters: 05/17/22 100/60 Pulse Readings from Last 3 Encounters: 05/17/22 81 Physical Exam GEN: Pleasant female ambulatory without the use of an assistive device. HEENT: No appearance of alopecia, malar rash, periorbital heliotrope rash, episcleritis, scleritis or or palpable parotid gland enlargement. Ocular conjunctiva appears slightly dry but without chemosis. MSK: No active joint synovitis perhaps some early osteoarthritic changes small finger joints of both hands and basilar thumb 1st CMC articulation. Both knees without crepitus, soft tissue swelling change, joint effusion or limited range of motion or appearance of developing joint deformity. Physical Exam There is currently no information documented on the homunculus. Go to the Rheumatology activity andcomplete the homunculus joint exam. SKIN: No rash or nodules identified. EXT: No distal lower extremity edema. PSYCH: Alert. Appropriate. LABS: No results for input(s): WBC, RBC, HGB, HCT, MCV, MCHC, PLTCOUNT, NEUTPCT, LYMPHPCT, MONOCYTPCT, EOSINPCT, BASOPHILPCT, GRANSIMMPCT, NEUTABS, LYMPHABS, MONOCYTABS, EOSINABS, BASOABS, IMMGRANSABS in the last 03240 hours. No results for input(s): SODIUM, POTASSIUM, CHLORIDE, CO2, BUN, CREATININE, GLUCOSE, CALCIUM, ALBUMIN, ALKPHOS, ALT, AST, TBIL, TPROT, EGFR in the last 05550 hours. No results for input(s): CRP in the last 63170 hours. No results for input(s): SEDRATE in the last 04773 hours. No results for input(s): RAQNT in the last 79184 hours. No results for input(s): CCPIGG in the last 56341 hours. No results for input(s): GLYNN, ANATITER in the last 75405 hours. No results for input(s): DNAABDS in the last 46486 hours. No results for input(s): C3 in the last 68115 hours., No results for input(s): C4 in the last 88929jgxdr. No results for input(s): SMAB, SMRNPAB, SSAAB, SSBAB, SMV33FX in the last 19204 hours. No results for input(s): CK in the last 02063 hours. No results for input(s): COLORUA, CLARITYUA, SPECGRAVUA, PHUA, PROTEINUA, BLOODUA, LEUKOCYTEUA, NITRITEUA, GLUCOSEUA, KETONEUA, BILIRUBINUA, UROBILINUA, REDSUBUA, WBCUAAUTO, RBCUAAUTO, EPITHUAAUTO, BACTUAAUTO, YEASTUAAUTO, SPERMUAAUTO, CASTUAAUTO, CRYSUAAUTO, MUCUSUAAUTO in the last 66762 hours. No results for input(s): [id number] in the last 66652 hours. IMAGING: No image results found. ASSESSMENT/PLAN: No orders of the defined types were placed in this encounter. ICD-10-CM 1. Sjogren's syndrome with keratoconjunctivitis sicca (CMS/HCC) GLYNN+, anti-SSA + >8.0 M35.01 2. Pain and swelling of knee, unspecified laterality Temporary M25.569 M25.469 Sjogren's syndrome with keratoconjunctivitis sicca (CMS/HCC) GLYNN+, anti-SSA + >8.0 (Primary) Comments: Would explain dry eyes and developing dry mouth but would not explain intermittent knee swelling and suspect hand symptoms either carpal tunnel syndrome (R) and/or early developing features of primary osteoarthritis. Would follow up with ecmo specialist and might be a candidate for either Restasis or Xiidra eye drops to help with inflammation but should continue use of preservative free artificial tears as much aspossible to avoid corneal abrasions and help with dry sensation. No specific need to go forward with confirmatory minor salivary gland lip biopsy ( Gold standard ) to confirm primary Sjogren's syndrome since it will not change treatment approach at this time whichis mainly for symptomatic eye dryness however if other symptoms develop including symptoms of inflammatory hand arthritis, cough, shortness of breath, rash, or blood count abnormalities then further work up and follow up would be encouraged. Pain and swelling of knee, unspecified laterality Comments: Episodes of prior painful knee swelling and prior Dx of a Browne's cyst . Uncertain nature of swelling (joint fluid analysis would be helpful) but could consider intermittent hydraarthrosis although cannot completely exclude palindromic rheumatism but thought less likely. Identification of a positive GLYNN and positive anti SSA antibody likely unrelated to her intermittent painful knee swelling episodes since primary Sjogren's disease associated arthritis would not be expected to present with large knee joint effusions. Return if symptoms worsen or fail to improve. Thank you for allowing me to participate in the rheumatologic care of your pleasant patient. [place] not hesitate to contact me if I can provide any additional follow-up information that you may require. Adryan Blum D.O., [facility] Medical group Division of Rheumatology at [facility] The total time spent today in the visit with the patient for this initial encounter, including performing chart preparation, review of available data, and documentation, patient education, not related to any procedure or preventative visit services was 45 minutes. Portions of the record was created with voice recognition software.Variances in web graphic designer may occur Adryan Blum DO 05/17/2022 12:16 PM UTIVE SALES MANAGER documented in this encounter Plan of Treatment Not on file documented as of this encounter Visit Diagnoses Diagnosis Sjogren's syndrome with keratoconjunctivitis sicca (CMS/HCC) GLYNN+, anti-SSA + >8.0- Primary Pain and swelling of knee, unspecified laterality documented in this encounter Care Teams Dot Compliance Coordinator Relationship Specialty Start Date End Date Angie Lowery DO [address] [place] [address] PCP - General Family Medicine 05/04/22 documented as of this encounter
--- OUTSIDE RECORDS SUMMARY | 2024-06-24 16:01 | XMS_ITS | Continuity of Care Document ---
Author Organization [facility] [place] Address [address] [place] [address] [place] [address] Care Team Providers Care Rink Rat Name Role Phone TONYA SEAN Primary Care Provider Assessment Encounter Date Assessment Date Assessment LastModified by Organization Details LastModified Time 05/28/2024 05/28/2024 Annual gynecological exam performed. Patient will come back in a year unless there are new symptoms. [email or web address] Not available 05/28/2024 12:04:26 Plan of Treatment Reminders Order Date Submit Date Provider Last Modified By Organization Details Last Modified Time Details Appointments None recorded. Lab None recorded. Referral None recorded. Procedures None recorded. Surgeries None recorded. Imaging MAMMO, screening, digital, bilateral 2023 [facility], [address], [place] [address], [place], [address], 04:03:41 Medication Orders CombiPatch 0.05 mg-0.14 mg/24 hr transdermal 2023 [address] [id number], [address] [place], [address], 12:24:05 Patient TargetsNo targets recorded. Patient InstructionsNo instructions recorded. Reason for Referral None Reported. Procedures Surgical History Date Name Laterality Status Provider Name and Address Organization Details Recorded Time 05/28/20 24 Date of Last Pap Smear completed Talya Farooq [facility] 05/28/2024 13:11:21 06/07/20 23 Date of Last Mammogram completed Talya Farooq [facility] 05/28/2024 12:07:49 08/26/19 23 IUD Removal completed Troy Fuller MD [address], [place], [address], [facility] 08/26/2022 23:40:32 02/23/20 22 [facility] 12:07:12 02/23/20 22 Colposcopy completed [facility] 05/28/2024 12:10:54 02/21/20 22 Colposcopy completed Troy Fuller MD [address], [place], [address], [facility] 02/21/2022 19:08:37 07/04/19 16 hernia repair completed [facility] 05/28/2024 12:09:43 07/04/19 16 stripping of vein completed [facility] 05/28/2024 12:09:47 07/04/18 86 mastoidectomy completed [facility] 05/28/2024 12:10:16 07/04/18 86 extraction of wisdom tooth completed [facility] 05/28/2024 12:10:25 07/04/18 81 Tonsillectomy completed [facility] 05/28/2024 12:10:39 Imaging Results None recorded. Procedure Notes None recorded. Medical Equipment None [...] Updated DateTime 05/28/2024 165.1 cm 20.5 kg/m2 31093.86 g 108 mm[Hg] 71 mm[Hg] Talya Farooq [facility] 12:05:04 Social History Question Answer Notes LastModified by Organizat ion Details LastModified Time Tobacco Smoking Status Unknown If Ever Smoked Talya Farooq [facility] 05/28/2024 12:09:16 Do You Have [...] Or The Highest Degree You Have Received? 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 [id number] Information not available 01/29/2022 Do You Use Any Illicit Or Recreational Drugs? No Information not available 01/29/2022 Do You Use Sunscreen Routinely? Yes Information not available 01/29/2022 Has Tobacco Cessation Counseling Been Provided? No [email or web address] Information not available 05/28/2024 Have You Used IV Drugs? No Information not available 01/29/2022 Do You Or Have You Ever Used Any Other Forms Of Tobacco Or Nicotine? No [email or web address] Information not available 05/28/2024 Sex: Unknown Functional Status Question Answer Note LastModified by Organizat ion Details LastModified Time Do you have difficulty walking or climbing stairs? No [email or web address] Information not available 05/28/2024 Are you able to walk? YESWOREST Information not available 01/29/2022 Are you able to care for yourself? Yes [email or web address] Information not available 05/28/2024 Do you have difficulty dressing or bathing? No [email or web address] Information not available 05/28/2024 What is your exercise level? Moderate Information not available 01/29/2022 Mental Status None recorded. Family History Nothing Reported. Medical History Condition Response Allergies (Food, seasonal, environmental ) Y Other Y Breast Cancer N Drug/Latex Allergies/Reactions N Blood Transfusion N Dermatologic Disorders N Lung Disease N Defects or Inherited Disease N Breast Problem Y Gestational Diabetes N Hematologic disorders N Anesthesia Complications N History of STI Y Deep Vein Thrombosis N Polycystic ovary syndrome N Anxiety Disorder N Autoimmune disease N Arthritis N Infertility N Polyps N Acid Reflux (GERD) N History of abnormal pap Y Cancer N Stroke N Varicosities N Neurologic/Epilepsy N Endometriosis N High Cholesterol N Headaches N Fibromyalgia N Kidney Disease N Heart Problems N Kidney or Bladder Problems N Thyroid Problems N GI Problems N Eating Disorder [...] Diagnosis/Indication Diagnosis SNOMED-CT Code Diagnosis ICD10 Code [id number] ELDA Marcelino [place] [address] [address] 05/28/2024 11:51:50 05/28/2024 13:20:41 Gynecologic examination 82126623 Z01.419 Screening for malignant neoplasm of breast 208001049 Z12.39 Hormone re placement therapy [id number] Z79.890 Health Concerns Section Related Observation LastModified by Organization Detai ls LastModified Time None Recorded Concern Status LastModified by Organization Details LastModified Time None Recorded Payers Encounter Date Sequence Insurance Name Policy Number Policy Santiago Covered Member ID Santiago Member ID Guarantor Name 05/28/2024 1 [facility] [id number] Elodia Cutler [id number] Elodia Cutler Notes Date Note Type Note Provider Name and Address Organization Details Recorded Time text/html Annual Check Processor Post-MenopausalReported bypatient.Menopausal Symptoms:no menopausal symptoms; normal vaginal [...] HRT, hot flashes controlled ELDA Marcelino [address], [place], [address], [facility] 05/28/2024 13:15:11 OBGyn Episode No OBEpisode recorded.
--- OUTSIDE RECORDS SUMMARY | 2024-06-24 16:01 | XMS_ITS | Patient Health Summary ---
Author Organization [facility] Address [address] [place] [address] Care Team Providers Care Small Craft Operator Name Role Phone Lowery Angie Kwan THURMAN Primary Care Provider [phone] Note from [facility],non-owned Affiliates and Associated Physician Practices is amultiple site organization consisting of ambulatory clinics and hospital sitesin [place], [place], [place] and [place]. This disclosure is being madepursuant to the Care Everywhere program and may not contain all information available regarding this patient. Last updated 18.[facility] Allergies No known active allergies Medications Be [...] Comments Blood Pressure 100/60 05/17/2022 11:17 AM CUT LACE MACHINE OPERATOR Pulse 81 05/17/2022 11:17 AM CUT LACE MACHINE OPERATOR Temperature 36.7 ??C (98 ??F) 05/17/2022 11:17 AM CUT LACE MACHINE OPERATOR Respiratory Rate 16 05/17/2022 11:17 AM CUT LACE MACHINE OPERATOR Oxygen Saturation 100% 05/17/2022 11:17 AM CUT LACE MACHINE OPERATOR Inhaled Oxygen Concentration - - Weight 53.1 kg (117 lb) 05/17/2022 11:17 AM CUT LACE MACHINE OPERATOR Height 167.6 cm (5' 6 ) 05/17/2022 11:17 AM CUT LACE MACHINE OPERATOR Body Mass Index 18.88 05/17/2022 11:17 AM CUT LACE MACHINE OPERATOR Procedures * LAB(Performed 03/18/2022) Results * LAB (03/18/2022) Scanned Document SCANNING ONLY Care Teams Small Craft Operator Relationship Specialty Start Date End Date Angie Lowery DO [address] [place] [phone] PCP - General Family Medicine 05/04/22
--- OUTSIDE RECORDS SUMMARY | 2024-06-24 16:01 | XMS_ITS | Clinical Summary ---
Author Organization [employer] Address [address] [address] [facility] [place] [address] Care Team Providers Care Neurosurgical Nurse Name Role Phone Sebastián Angie Bowens Primary Care Provider [phone] Source Comments [facility] [employer] [facility],non-owned Affiliates and Associated Physician Practices is amultiple site organization consisting of ambulatory clinics and hospital sitesin [place], [place], [place] and [place]. This disclosure is being madepursuant to the Care Everywhere program and may not contain all information available regarding this patient. Last updated 18.[employer] [employer] Allergies No known active allergies Medications Be [...] Comments Blood Pressure 100/60 05/17/2022 11:17 AM PRESS DEPARTMENT MANAGER Pulse 81 05/17/2022 11:17 AM PRESS DEPARTMENT MANAGER Temperature 36.7 ??C (98 ??F) 05/17/2022 11:17 AM PRESS DEPARTMENT MANAGER Respiratory Rate 16 05/17/2022 11:17 AM PRESS DEPARTMENT MANAGER Oxygen Saturation 100% 05/17/2022 11:17 AM PRESS DEPARTMENT MANAGER Inhaled Oxygen Concentration - - Weight 53.1 kg (117 lb) 05/17/2022 11:17 AM PRESS DEPARTMENT MANAGER Height 167.6 cm (5' 6 ) 05/17/2022 11:17 AM PRESS DEPARTMENT MANAGER Body Mass Index 18.88 05/17/2022 11:17 AM PRESS DEPARTMENT MANAGER Plan of Treatment Health Maintenance Due Date Last Done Comments COLOGUARD (AGES 45-75) - COL ON CA SCREENING 1970 COLON MONITORING 1970 COLONOSCOPY - COLON CA SCREENING 1970 CT COLONOGRAPHY - COLON CA SCREENING 1970 Colorectal Cancer Screening 1970 FIT - COLON CA SCREENING 1970 FLEX SIG - COLON CA SCREENING 1970 LIPID TESTING 1970 MAMMOGRAM 1970 PAP SMEAR 1970 HIV SCREENING 1985 HEPATITIS C SCREENING 12/16/1988 DTAP/TDAP/TD VACCINES (1 - Tdap) 1989 HEPATITIS B VACCINE (1 of 3 - 19+ 3-dose series) 1989 ZOSTER VACCINE (1 of 2) 2020 DEPRESSION SCREENING 07/04/2023 COVID-19 VACCINE ( - 2023-2 5 season) 2024 INFLUENZA VACCINE (#1) 2024 HIB VACCINE Aged Out No longer eligi ble based on patient's age to complete this topic HPV VACCINE Aged Out No longer eligi ble based on patient's age to complete this topic MENINGOCOCCAL VACCINE Aged Out No clinton clara eligible based on patient's age to complete this topic PNEUMOCOCCAL VACCINE Aged Out No long er eligible based on patient's age to complete this topic Care Teams Neurosurgical Nurse Relationship Specialty Start Date End Date Angie Lowery DO [address] [place] [address] PCP - General Family Medicine 05/04/22
--- OUTSIDE RECORDS SUMMARY | 2024-06-24 16:02 | XMS_ITS | Clinical Summary ---
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 Gender Identity Not on file Sexual Orientation Not on file Obstetrics History Para Term AB IAB SAB Ectopic Multiple Livin g Live Births 2 2 2 Date Outcome GA Total Labor Labor/2nd/3rd Weight Sex Type Anes PTL Alison A1 A5 Name Clin Term Term Last Filed Vital Signs Vital Sign Reading Time Taken Comments Blood Pressure - - Pulse - - Temperature - - Respiratory Rate - - Oxygen Saturation - - Inhaled Oxygen Concentration - - Weight 52.2 kg (115 lb) 03/06/2022 10:15 AM CDT Height 165.1 cm (5' 5 ) 03/06/2022 10:15 AM CDT Body Mass Index 19.14 03/06/2022 10:15 AM CDT Plan of Treatment Health Maintenance Due Date Last Done Comments Cervical Cancer Screening 1970 Colon Cancer Screening-Colonoscopy 1970 Depression Screening 1970 Hepatitis C Screening 1970 DTaP/Tdap/Td Vaccine (1 - Tdap) 1981 Hepatitis B Screening 1988 Regular Well Visit/Exam 18-64 1988 Zoster Vaccine (1 of 2) 2020 Breast Cancer Screening-Mammogram 03/06/2023 022 Influenza Vaccine (#1) 2024 Pneumococcal vaccine <65 Aged Out No longer eligible based on patient's age to complete this topic Procedures Procedure Name Priority Date/Time Associated Diagnosis Comments SCREENING MAMMOGRAM BILATERAL W DEVAN Schedule Routine, Read Routine (OP Routine) 03/06/2022 10:21 AM CDT Screening mammogram, encounter for from Last 3 Months or Most Recently Relevant to Health Maintenance Results * Screening Mammogram Bilateral W Devan (03/06/2022 10:21 AM CDT) Anatomical Region Laterality Modality Breast Bilateral Mammography 03/16/2022 3:36 PM CDT Impressions 03/16/2022 3:36 PM CDT There is no mammographic evidence of malignancy. A 1 year screening mammogram is recommended. BI-RADS: 1 - Negative. The patient has been or will be contacted. The patient will be entered into a reminder system with a target due date of 1 year for her next mammogram. Electronically signed by: Arya Garcia M.D. Narrative 03/16/2022 3:36 PM CDT EXAMINATION: SCREENING MAMMOGRAM BILATERAL W DEVAN ORDERING HEALTHCARE PROVIDER: SELF SCREENING MAMMOGRAM HISTORY: Routine screening mammography. COMPARISON: ??03/11/2021, 02/18/2020 TECHNIQUE: CC and MLO views of the bilateral breasts were obtained with digital technique using breast tomosynthesis with C view. Computer aided detection was utilized. FINDINGS: DENSITY: The tissue of the breasts is extremely dense, which lowers the sensitivity of mammography. BREASTS: There are no suspicious masses, suspicious calcifications, or other suspicious findings in either breast. There has been no suspicious interval change. us Self Screening Mammogram IMG MAMMO PROCEDURES Fi nal Result from Last 3 Months or Most Recently Relevant to Health Maintenance Insurance [employer] H[employer]/POS Care Teams Drawer In Jacquard Loom Relationship Specialty Start Date End Date Angie Lowery DO PCP - General 03/06/22 Angie Lowery DO Family Medicine 03/06/22
--- OUTSIDE RECORDS SUMMARY | 2024-06-24 16:02 | XMS_ITS | Encounter Summary ---
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 us Not In File Miscellaneous IMG MAMMO PROCEDURES F inal Result [facility] documented in this encounter Visit Diagnoses Not on filedocumented in this encounter
--- OUTSIDE RECORDS SUMMARY | 2024-06-24 16:02 | XMS_ITS | Encounter Summary ---
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 us Not In File Miscellaneous IMG MAMMO PROCEDURES F inal Result [facility] documented in this encounter Visit Diagnoses Not on filedocumented in this encounter
--- OUTSIDE RECORDS SUMMARY | 2024-06-24 16:02 | XMS_ITS | Encounter Summary ---
Author Organization [facility] Address [address] [place] [address] Care Team Providers Care White Kid Buffer Name Role Phone Angie Lowery DO Primary Care Provider + Angie Lowery DO Unavailable [phone] Reason for Referral * Diagnostic Imaging (Routine) - Closed Specialty Diagnoses / Procedures Referred By Contac t Referred To Contact Diagnoses Screening mammogram, encounter for Procedures Screening Mammogram Bilateral W Nita Screening Mammogram, [address] [address] Referral ID Status Reason Start Date Expiration Date Visits Re quested Visits Authorized [id number] Closed 02/03/2022 03/05/2023 1 1 * Diagnostic Imaging (Routine) - Closed Specialty Diagnoses / Procedures Referred By Contac t Referred To Contact Diagnoses Screening mammogram, encounter for Procedures Screening Mammogram Bilateral [place] Screening Mammogram, [address] [address] Referral ID Status Reason Start Date Expiration Date Visits Re quested Visits Authorized [id number] Closed 02/03/2022 03/05/2023 1 1 Reason for Visit * Diagnostic Imaging (Routine) - Closed Specialty Diagnoses / Procedures Referred By Contac t Referred To Contact Diagnoses Screening mammogram, encounter for Procedures Screening Mammogram Bilateral [place] Screening Mammogram, [address] [address] Referral ID Status Reason Start Date Expiration Date Visits Re quested Visits Authorized [id number] Closed 02/03/2022 03/05/2023 1 1 Encounter Details Date Type Department Care Team (Late st Contact Info) Description 03/06/2022 9:56 AM CDT - 03/06/2022 11:59 PM CDT Hospital Encounter [facility] [address] [place] [id number] Screening Mammogram, Self Troy Fuller MD [address] [place] [address] Screening mammogram, encounter for Discharge Disposition: Discharge to home or self care Social History Tobacco Use Types Packs/Day Years Used Date Smoking Tobacco: Never Assessed Comments No Sex and Gender Information Value Date Recorded Sex Assigned at Not on file 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 Gender Identity Not on file Sexual Orientation [...] Mass Index 19.14 03/06/2022 10:15 AM CDT documented in this encounter Discharge Disposition Disposition Code Departure Means Destination Discharge to home or self care documented in this encounter Plan of Treatment Not on file documented as of this encounter Procedures Procedure Name Priority Date/Time Associated Diagnosis Comments SCREENING MAMMOGRAM BILATERAL W NITA Schedule Routine, Read Routine (OP Routine) 03/06/2022 10:21 AM CDT Screening mammogram, encounter for documented in this encounter Results * Screening Mammogram Bilateral W Nita (03/06/2022 10:21 AM CDT) Anatomical Region Laterality [...] PM CDT EXAMINATION: SCREENING MAMMOGRAM BILATERAL W NITA ORDERING HEALTHCARE PROVIDER: SELF SCREENING MAMMOGRAM HISTORY: [...] Mammogram IMG MAMMO PROCEDURES Fi nal Result documented in this encounter Visit Diagnoses Diagnosis Screening mammogram, encounter for documented in this encounter Care Teams White Kid Buffer Relationship Specialty Start Date End Date Angie Lowery DO PCP - General 03/06/22 Angie Lowery DO Family Medicine 03/06/22 documented as of this encounter
--- OUTSIDE RECORDS SUMMARY | 2024-06-24 16:02 | XMS_ITS | Encounter Summary ---
Author Organization [facility] Address [address] [place] [address] Care Team Providers Care Classroom Instructor Name Role Phone Angie Lowery DO Primary Care Provider + Encounter Details Date Type Department Care Team (Late st Contact Info) Description 06/05/2024 Orders Only [facility] Oncology and Hematology [facility] [address] [place] [address] Jeffrey Hatch MD [address] [place] [phone] Social History Tobacco Use Types Packs/Day Years Used Date Smoking Tobacco: Never Smokeless Tobacco: Never Alcohol Use Standard Drinks/Week Comments Yes 0 (1 standard drink = 0.6 oz pur e alcohol) occassionaly Sex and Gender Information Value Date Recorded Sex Assigned at Not on file Gender Identity Not on file Sexual Orientation Not on file documented as of this encounter Plan of Treatment Upcoming Encounters Date Type Department Care Team (Late st Contact Info) Description 07/11/2024 4:30 PM CLOTH BALER Telephone Check Up [facility] [place] Oncology and Hematology [place] Katty [address] [place] [address] Jeffrey Hatch MD [address] [place] [address] documented as of this encounter Procedures Procedure Name Priority Date/Time Associated Diagnosis Comments METHYLMALONIC ACID Routine 06/02/2024 9:47 AM CLOTH BALER documented in this encounter Results * METHYLMALONIC ACID (06/02/2024 9:47 AM CLOTH BALER) Blood Jeffrey Hatch MD CHEMISTRY ORDERABLES documented in this encounter Visit Diagnoses Not on filedocumented in this encounter Care Teams Classroom Instructor Relationship Specialty Start Date End Date Angie Lowery DO [address] [facility] [place] [phone] PCP - General Family Practice 04/13/24 documented as of this encounter
--- OUTSIDE RECORDS SUMMARY | 2024-06-24 16:02 | XMS_ITS | Encounter Summary ---
Author Organization [facility] Address [address] [facility] [address] [place] [id number] Care Team Providers Care Energy Conservation Engineer Name Role Phone Angie Lowery DO Primary Care Provider + Reason for Visit * Diagnostic Imaging (Routine) - Canceled Specialty Diagnoses / Procedures Referred By Jessica rubin Referred To Contact Diagnoses Synovial cyst of knee, unspecified laterality Procedures XR Knee Left 4 or More Views Angie Lowery DO Phone: tel: fax: [facility] Referral ID Status Reason Start Date Expiration Date V isits Requested Visits Authorized [id number] Canceled 02/18/2022 03/20/2023 1 1 Encounter Details Date Type Department Care Team (Latest Contact Info) Description 02/18/2022 8:45 AM CDT Ancillary Procedure [facility] Imaging at [address] [address] Synovial cyst of knee, unspecified laterality Social History Tobacco Use Types Packs/Day Years Used Date Smoking Tobacco: Never Assessed Comments Unknown Sex and Gender Information Value Date Recorded Sex Assigned at Not on file 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 Gender Identity Not on file Sexual Orientation Not on file documented as of this encounter Plan of Treatment Not on file documented as of this encounter Procedures Procedure Name Priority Date/Time Associated Diagnosis Comments XR KNEE BILATERAL 4 OR MORE VIEWS Schedule Routine, Read Routine (OP Routine) 02/18/2022 8:34 AM CDT Synovial cyst of knee, unspecified laterality documented in this encounter Results * XR Knee Bilateral 4 or More Views (02/18/2022 8:34 AM CDT) Anatomical Region Laterality Modality Lower Extremities, Knee Digital Radiography 02/18/2022 10:0 6 PM CDT Narrative 02/18/2022 10:08 PM CDT EXAM DESCRIPTION: XR KNEE BILATERAL 4 OR MORE VIEWS REASON FOR STUDY: Posterior knee pain and pressure x 1 yr no trauma or surgery ? TECHNIQUE: Four views submitted without comparison. FINDINGS: There are no fractures. ??Alignment is normal. ??Small left and trace right bilateral knee effusions are present. IMPRESSION: Small left and trace right bilateral knee effusions. THIS IS AN ELECTRONICALLY VERIFIED FINAL REPORT 02/18/2022 10:08 PM - Electronically signed by ??Marcus Kam M.D. D: ??02/18/2022 10:08 PM T: Report ID: [id number] Reading Location: ??[id number] Procedure Note Marcus Kam MD - 02/18/2022 EXAM DESCRIPTION: XR KNEE BILATERAL 4 OR MORE VIEWS REASON FOR STUDY: Posterior knee pain and pressure x 1 yr no trauma or surgery TECHNIQUE: Four views submitted without comparison. FINDINGS: There are no fractures. Alignment is normal. Small left andtrace right bilateral knee effusions are present. IMPRESSION: Small left and trace right bilateral knee effusions. THIS IS AN ELECTRONICALLY VERIFIED FINAL REPORT 02/18/2022 10:08 PM - Electronically signed by Marcus Kam M.D. T: Report ID: [id number] Reading Location: [id number] Reese Simon MD IMG XR PROCEDURES Final Resul t documented in this encounter Visit Diagnoses Diagnosis Synovial cyst of knee, unspecified laterality documented in this encounter Care Teams Energy Conservation Engineer Relationship Specialty Start Date End Date Angie Lowery DO PCP - General Family Medicine 02/18/22 03/05/22 documented as of this encounter
--- OUTSIDE RECORDS SUMMARY | 2024-06-24 16:02 | XMS_ITS | Referral Summary ---
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
--- OUTSIDE RECORDS SUMMARY | 2024-06-24 16:02 | XMS_ITS | Encounter Summary ---
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 us Not In File Miscellaneous IMG US PROCEDURES Flora l Result [facility] documented in this encounter Visit Diagnoses Not on filedocumented in this encounter
--- OUTSIDE RECORDS SUMMARY | 2024-06-24 16:02 | XMS_ITS | Clinical Summary ---
Author [facility] Address [address] [address] Care Team Providers Care Venereal Disease Investigator Name Role Phone Angie Lowery DO Primary Care Provider + Allergies No known active allergies Medications Medication Sig Dispensed Refills Start Date End Date Status PROGESTERONE MICRONIZED ORAL Take by mouth. Active estrogens,esterified (ESTERIFIED ESTROGENS ORAL) Take by mouth. Active Active Problems No known active problems Encounters Date Type Department Care Team Description 06/19/2024 Orders Only [facility] Oncology and Hematology - [place] [address] [place] [address] Jeffrey Hatch MD 06/05/2024 Orders Only [facility] Oncology and Hematology - [place] [address] [place] [address] Jeffrey Hatch MD 06/04/2024 Orders Only [facility] Oncology and Hematology - [place] [address] [place] [id number] Jeffrey Hatch MD 05/29/2024 External Device Data STL ABSTRACTION Provider, Abstract 05/29/2024 Orders Only [facility] Oncology and Hematology - [place] [address] [place] [phone] Jeffrey Hatch MD 05/28/2024 3:00 PM SLIDE FASTENER CHAIN ASSEMBLER Office Visit [facility] Oncology and Hematology - [place] [address] [place] [address] Jeffrey Hatch MD Chronic anemia (Primary Dx); Leukopenia, unspecified type from Last 3 Months Family History Medical History Relation Name Comments No Known Problems Brother No Known Problems Child 1 No Known Problems Child 2 No Known Problems Father No Known Problems Mother Relation Name Status Comments Brother Alive Child 1 Alive Child 2 Alive Father Mother Alive Social History Tobacco Use Types Packs/Day Years Used Date Smoking Tobacco: Never Smokeless Tobacco: Never Tobacco Cessation:Counseling Given: Not Answered Alcohol Use Standard Drinks/Week Comments Yes 0 (1 standard drink = 0.6 oz pur e alcohol) occassionaly Sex and Gender Information Value Date Recorded Sex Assigned at Not on file Gender Identity Not on file Sexual Orientation Not on file Last Filed Vital Signs Vital Sign Reading Time Taken Comments Blood Pressure 102/64 05/28/2024 3:13 PM SLIDE FASTENER CHAIN ASSEMBLER Pulse 72 05/28/2024 3:13 PM SLIDE FASTENER CHAIN ASSEMBLER Temperature 36.8 ??C (98.2 ??F) 05/28/2024 3:13 PM CS T Respiratory Rate 16 05/28/2024 3:13 PM SLIDE FASTENER CHAIN ASSEMBLER Oxygen Saturation 98% 05/28/2024 3:13 PM SLIDE FASTENER CHAIN ASSEMBLER Inhaled Oxygen Concentration - - Weight 55.3 kg (122 lb) 05/28/2024 3:13 PM SLIDE FASTENER CHAIN ASSEMBLER Height 165.1 cm (5' 5 ) 05/28/2024 3:13 PM SLIDE FASTENER CHAIN ASSEMBLER Body Mass Index 20.3 05/28/2024 3:13 PM SLIDE FASTENER CHAIN ASSEMBLER Plan of Treatment Upcoming Encounters Date Type Department Care Team (Late st Contact Info) Description 07/11/2024 4:30 PM SLIDE FASTENER CHAIN ASSEMBLER Telephone Check Up [facility] Oncology and Hematology - [place] [address] [facility] [address] [place] [address] Jeffrey Hatch MD [address] [facility] [address] [place] [address] Health Maintenance Due Date Last Done Comments DTAP/TDAP/TD VACCINES (1 - Tdap) 1989 HEPATITIS B VACCINES (1 of 3 - 19+ 3-dose series) 1989 COLORECTAL SCREENING 12/22/2015 Colorectal Cancer Screening 12/22/2015 FIT-DNA Q 3 years 12/22/2015 FIT/FOBT Q 1 year 12/22/2015 Flex Sig/CT Colonography Q 5 years 12/22/2015 ZOSTER VACCINE (1 of 2) 2020 BREAST CANCER SCREENING 03/06/2023 03/06/2022 INFLUENZA VACCINE (#1) 2024 CERVICAL CANCER SCREENING 12/07/2025 12/07/2022 PNEUMOCOCCAL VACCINE 0-64 YEARS Aged Out No longer eligible based on patient's age to complete this topic Procedures Procedure Name Priority Date/Time Associated Diagnosis Comments US ABDOMEN COMPLETE Routine 06/18/2024 1 1:14 AM SLIDE FASTENER CHAIN ASSEMBLER METHYLMALONIC ACID Routine 06/02/2024 9: 47 AM SLIDE FASTENER CHAIN ASSEMBLER PERIPH BLOOD SMEAR, SUPPLEMENTAL Routine 05/29/2024 1:24 PM SLIDE FASTENER CHAIN ASSEMBLER GLYNN PANEL Routine 05/28/2024 3:41 PM SLIDE FASTENER CHAIN ASSEMBLER PERIPHERAL BLOOD SMEAR EVAL Routine 05/28/2024 3:12 PM SLIDE FASTENER CHAIN ASSEMBLER COMPREHENSIVE METABOLIC PANEL Routine 05/28/2024 11:39 AM SLIDE FASTENER CHAIN ASSEMBLER CBC WITH DIFFERENTIAL Routine 05/28/2024 11:30 AM SLIDE FASTENER CHAIN ASSEMBLER CBC WITH DIFFERENTIAL Routine 05/28/2024 11:27 AM SLIDE FASTENER CHAIN ASSEMBLER from Last 3 Months Results * US ABDOMEN COMPLETE (06/18/2024 11:14 AM SLIDE FASTENER CHAIN ASSEMBLER) Anatomical Region Laterality Modality Abdomen Other Jeffrey Hatch MD US ORDERABLES * METHYLMALONIC ACID (06/02/2024 9:47 AM SLIDE FASTENER CHAIN ASSEMBLER) Blood Jeffrey Hatch MD CHEMISTRY ORDERABLES * PERIPH BLOOD SMEAR, SUPPLEMENTAL (05/29/2024 1:24 PM SLIDE FASTENER CHAIN ASSEMBLER) Blood Jeffrey Hatch MD CHEMISTRY ORDERABLES COM * GLYNN PANEL (05/28/2024 3:41 PM SLIDE FASTENER CHAIN ASSEMBLER) Blood Jeffrey Hatch MD CHEMISTRY ORDERABLES * PERIPHERAL BLOOD SMEAR EVAL (05/28/2024 3:12 PM SLIDE FASTENER CHAIN ASSEMBLER) Blood Jeffrey Hatch MD HEMATOLOGY ORDERABLE S * COMPREHENSIVE METABOLIC PANEL (05/28/2024 11:39 AM SLIDE FASTENER CHAIN ASSEMBLER) Blood Jeffrey Hatch MD CHEMISTRY ORDERABLES * CBC WITH DIFFERENTIAL (05/28/2024 11:30 AM SLIDE FASTENER CHAIN ASSEMBLER) Only the most recent of2 resultswithin the time period is included. Blood Jeffrey Hatch MD HEMATOLOGY ORDERABLE S from Last 3 Months Care Teams Venereal Disease Investigator Relationship Specialty Start Date End Date Angie Lowery DO [address] [place] [phone] PCP - General Family Practice 04/13/24
--- OUTSIDE RECORDS SUMMARY | 2024-06-24 16:03 | XMS_ITS | Encounter Summary ---
Author Organization [facility] [employer] [facility] Address [address] [place] [address] Care Team Providers Care Managed Care Provider Name Role Phone Angie Lowery DO Primary Care Provider + Encounter Details Date Type Department Care Team (Late st Contact Info) Description 06/04/2024 Orders Only [facility] Oncology and Hematology [facility] [address] [place] [address] Jeffrey Hatch MD [address] [place] [address] Social History Tobacco Use Types Packs/Day [...] st Contact Info) Description 07/11/2024 4:30 PM HOTEL LOBBY CONCIERGE Telephone Check Up [facility] Oncology and Hematology [place] [address] [place] [address] Jeffrey Hatch MD [address] [place] [address] documented as of this encounter Procedures Procedure Name Priority Date/Time Associated Diagnosis Comments GLYNN PANEL Routine 05/28/2024 3:41 PM HOTEL LOBBY CONCIERGE documented in this encounter Results * GLYNN PANEL (05/28/2024 3:41 PM HOTEL LOBBY CONCIERGE) Blood Jeffrey Hatch MD CHEMISTRY ORDERABLES documented in this encounter Visit Diagnoses Not on filedocumented in this encounter Care Teams Managed Care Provider Relationship Specialty Start Date End Date Angie Lowery DO [facility] [address] [place] [address] PCP - General Family Practice 04/13/24 documented as of this encounter
--- OUTSIDE RECORDS SUMMARY | 2024-06-24 16:03 | XMS_ITS | Encounter Summary ---
Author Organization [facility] [employer] [facility] Address [address] [place] [address] Care Team Providers Care Occupational Hygienist Name Role Phone Angie Lowery DO Primary Care Provider + Encounter Details Date Type Department Care Team (Late st Contact Info) Description 05/29/2024 Orders Only [facility] Oncology and Hematology [facility] [address] [place] [address] Jeffrey Hatch MD [address] [employer] [address] [place] [phone] Social History Tobacco Use Types Packs/Day [...] st Contact Info) Description 07/11/2024 4:30 PM MOLDED GOODS OPERATOR Telephone Check Up [facility] Oncology and Hematology [place] [address] [place] [address] Jeffrey Hatch MD [address] [place] [address] documented as of this encounter Procedures Procedure Name Priority Date/Time Associated Diagnosis Comments PERIPH BLOOD SMEAR, SUPPLEMENTAL Routine 05/29/2024 1:24 PM MOLDED GOODS OPERATOR PERIPHERAL BLOOD SMEAR EVAL Routine 05/28/2024 3:12 PM MOLDED GOODS OPERATOR COMPREHENSIVE METABOLIC PANEL Routine 05/28/2024 11:39 AM MOLDED GOODS OPERATOR CBC WITH DIFFERENTIAL Routine 05/28/2024 11:30 AM MOLDED GOODS OPERATOR CBC WITH DIFFERENTIAL Routine 05/28/2024 11:27 AM MOLDED GOODS OPERATOR documented in this encounter Results * PERIPH BLOOD SMEAR, SUPPLEMENTAL (05/29/2024 1:24 PM MOLDED GOODS OPERATOR) Blood Jeffrey Hatch MD CHEMISTRY ORDERABLES COM * PERIPHERAL BLOOD SMEAR EVAL (05/28/2024 3:12 PM MOLDED GOODS OPERATOR) Blood Jeffrey Hatch MD HEMATOLOGY ORDERABLE S * COMPREHENSIVE METABOLIC PANEL (05/28/2024 11:39 AM MOLDED GOODS OPERATOR) Blood Jeffrey Hatch MD CHEMISTRY ORDERABLES * CBC WITH DIFFERENTIAL (05/28/2024 11:30 AM MOLDED GOODS OPERATOR) Blood Jeffrey Hatch MD HEMATOLOGY ORDERABLE S * CBC WITH DIFFERENTIAL (05/28/2024 11:27 AM MOLDED GOODS OPERATOR) Blood Jeffrey Hatch MD HEMATOLOGY ORDERABLE S documented in this encounter Visit Diagnoses Not on filedocumented in this encounter Care Teams Occupational Hygienist Relationship Specialty Start Date End Date Angie Lowery DO [address] [place] [address] PCP - General Family Practice 04/13/24 documented as of this encounter
--- OUTSIDE RECORDS SUMMARY | 2024-06-24 16:03 | XMS_ITS | Encounter Summary ---
Author Organization [facility] Address [address] [place] [address] Care Team Providers Care Workday Consultant Name Role Phone Angie Lowery DO Primary Care Provider + Encounter Details Date Type Department Care Team (Late st Contact Info) Description 05/29/2024 External Device Data STL ABSTRACTION Provider, Abstract NO ADDRESS ON FILE Social History Tobacco Use Types Packs/Day Years [...] st Contact Info) Description 07/11/2024 4:30 PM BRANCHER Telephone Check Up [facility] Oncology and Hematology - [place] [address] [facility] [address] [address] Jeffrey Hatch MD [address] [facility] [address] [place] [address] documented as of this encounter Visit Diagnoses Not on filedocumented in this encounter Care Teams Workday Consultant Relationship Specialty Start Date End Date Angie Lowery DO [address] [place] [address] [place] [address] PCP - General Family Practice 04/13/24 documented as of this encounter
--- OUTSIDE RECORDS SUMMARY | 2024-06-24 16:03 | XMS_ITS | Encounter Summary ---
Author Organization [facility] [employer] [facility] Address [address] [place] [address] Care Team Providers Care Energy Attorney Name Role Phone Angie Lowery DO Primary Care Provider + Reason for Referral * Radiology Services (Routine) - Closed Specialty Diagnoses / Procedures Referred By Contac t Referred To Contact Diagnoses Leukopenia, unspecified type Procedures US ABDOMEN COMPLETE Jeffrey Hatch MD [address] [facility] [address] [place] [phone] [place] [address] Referral ID Status Reason Start Date Expiration Date V isits Requested Visits Authorized [id number] Closed STL CTS 05/28/2024 06/28/2025 1 1 E SUGAR BOILER Reason for Visit * Reason Comments Establish Care Encounter Details Date Type Department Care Team (Late st Contact Info) Description 05/28/2024 3:00 PM WHITE SUGAR BOILER Office Visit [facility] Oncology and Hematology [facility] [address] [place] [address] [address] [place] [address] Jeffrey Hatch MD [address] [facility] [address] [place] [phone] Chronic anemia (Primary Dx); Leukopenia, unspecified type Social History Tobacco Use Types Packs/Day Years [...] Comments Blood Pressure 102/64 05/28/2024 3:13 PM WHITE SUGAR BOILER Pulse 72 05/28/2024 3:13 PM WHITE SUGAR BOILER Temperature 36.8 ??C (98.2 ??F) 05/28/2024 3:13 PM CS T Respiratory Rate 16 05/28/2024 3:13 PM WHITE SUGAR BOILER Oxygen Saturation 98% 05/28/2024 3:13 PM WHITE SUGAR BOILER Inhaled Oxygen Concentration - - Weight 55.3 kg (122 lb) 05/28/2024 3:13 PM WHITE SUGAR BOILER Height 165.1 cm (5' 5 ) 05/28/2024 3:13 PM WHITE SUGAR BOILER Body Mass Index 20.3 05/28/2024 3:13 PM WHITE SUGAR BOILER documented in this encounter Progress Notes * Jeffrey Hatch MD - 05/28/2024 3:43 PM CST Hematology-oncology consult Note Requesting Physician Angie Lowery, DO Primary Care Physician Angie Lowery, DO Problem list There is no problem list on file for this patient. Previous TREATMENT ? Measurable Disease ? Reason for Visit Elodia Cutler is a 53 y.o. female who was referred for consultation for leukopenia. History of present illness This is a pleasant 52-year-old female who has been in remarkably good health and does nottake any medication except hormone therapy with estradiol and progesterone. She denies any frequentinfections including UTI and bronchitis. She has been taking hormone therapy for 2 years duration. She denies any signs and symptoms of autoimmune diseases including arthritis and rash. Her weight and appetite stable. Denies any bleeding including melena hematochezia. She denies any excessive tiredness and fatigue. Patient had labs done in February 2024 that showed WBC count of 2.3. 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 No othernew complaints. Past Medical History No past medical history on file. Surgical History Past Surgical History: Procedure Laterality Date HX HERNIA REPAIR HX MASTECTOMY PARTIAL / LUMPECTOMY 1987 HX VEIN STRIPPING 2016 Medications Current Outpatient Medications Medication Sig Dispense Refill PROGESTERONE MICRONIZED ORAL Take by mouth. estrogens,esterified (ESTERIFIED ESTROGENS ORAL) Take by mouth. No current facility-administered medications for this visit. Allergies No Known Allergies Immunizations: There is no immunization history on file for this patient. Family History Family History Problem Relation Name Age of Onset No Known Problems Father No Known Problems Mother No Known Problems Brother No Known Problems Child No Known Problems Child Social History Social History Tobacco Use Smoking status: Never Smokeless tobacco: Never Substance Use Topics Alcohol use: Yes Comment: occassionaly Review of Systems Constitutional: Patient did not mention fever; no night sweats; no anorexia; no weight loss; no fatique NEENT: Patient did not mention headache; no change in vision; no change in hearing; no sore throat;no dysphagia Respiratory: Patient did not mention shortness of breath; no pleuritic chest pain; no cough; no hemoptysis Cardiac: Patient did not mention cardiac-like chest pain; no palpitations; no orthopnea; no PND; noDOE Breasts: Patient did not mention tenderness; no masses GI: Patient did not mention abdominal pain; no nausea; no vomiting; no diarrhea; no hematochezia; no melena : Patient did not mention dysuria; no frequency; no hesitancy; no hematuria STAGE ELECTRICIAN: Musculosketetal: Patient did not mention bone pain; no arthralgia; no joint swelling; no myalgia; Skin: Patient did not mention pruritis; no rash; no petechiae; no ecchymoses Endocrine: Patient did not mention polydipsia; no polyuria; no unusual weight gain Neuro: Patient did not mention headache; no change in vision; no sensory changes; no muscle weakness; no confusion; no seizures Psych: Patient did not mention anxiety; no depression; Physical Exam Vitals: As per nursing note Constitutional: Well developed, well nourished, no acute distress, non-toxic appearance Teeth and gum. No signs of infection or swelling. Eyes: PERRL, conjunctiva normal HEENT: Atraumatic, external ears normal, nose normal, oropharynx moist, no pharyngeal exudates. no sinus tenderness Neck- normal range of motion, no tenderness, supple Respiratory: No respiratory distress, normal breath sounds, no rales, no wheezing Cardiovascular: Normal rate, normal rhythm, no murmurs, no gallops, no rubs GI: Soft, nondistended, normal bowel sounds, nontender, no splenomegaly, no hepatomegaly, no mass, no rebound, no guarding : No costovertebral angle tenderness Musculoskeletal: No edema, no tenderness, no deformities. Back- no tenderness Integument: Well hydrated, no rash, Digits and nails inspection normal Lymphatic: No lymphadenopathy noted Neurologic: Alert & oriented x 3, CN 2-12 normal, normal motor function, normal sensory function, no focal deficits noted Psychiatric: Speech and behavior appropriate ? labs No results found for this or any previous visit (from the past 24 hour(s)). Labs from February 2024 showed WBC 2.3 hemoglobin 13.7 MCV 91.7 platelet 183,000 neutrophils 48% leukocyte 30% Pathology ? Imaging & Other Studies Performance Status? Assessment / Plan: ? Leukopenia. 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 She denies any frequent infections. She denies any signs and symptoms of autoimmune disease. Only medicine she is taking is a combination of estradiol and progesterone for postmenopausal symptoms. She denies any rash and arthritis. On my examination there is no evidence of lymphadenopathy and hepatosplenomegaly. I have discussed the differential diagnosis of leukopenia with the patient that includes autoimmune leukopenia, nutritional deficiencies, drug-induced leukopenia, liver and spleen disorders and with rare possibility of bone marrow disorder in her age group. I will order the workup that will include CBC with differential, CMP, GLYNN, iron studies and vitamin B12 level. Will check peripheral smear review. Will order abdominal ultrasound. No need for bone marrow biopsy testing at this time. Follow-up with me in 2 weeks to discuss findings and further recommendations. I have answered all the questions to patient satisfaction. Thank you very much for allowing me to participate in Elodia Cutler's evaluation and management. Pleasefeel free to contact if I can be of any further assistance in your patient???s care requiring hematology or oncology evaluation. Sincerely, ? ? Jeffrey Hatch M.D. cell TOBACCO COUNSELING She is not a tobacco/nicotine user. Jeffrey Hatch MD ,05/28/2024 3:43 PM ? Total time spent 60 minutes, two third of the total time spent counseling patient [id number]. CC:?Angie Lowery DO E SUGAR BOILER documented in this encounter Plan of Treatment Upcoming Encounters Date Type Department Care Team (Late st Contact Info) Description 07/11/2024 4:30 PM WHITE SUGAR BOILER Telephone Check Up [facility] Oncology and Hematology - [place] [address] [facility] [address] [place] [address] Jeffrey Hatch MD [address] [facility] [employer] [address] [place] [address] Scheduled Orders Name Type Priority Associated Diagnoses Orde r Schedule CBC WITH DIFFERENTIAL Lab Stat Chronic anemia Expected: 05/28/2024, Expires: 05/28/2025 COMPREHENSIVE METABOLIC PANEL Lab Stat Chronic anemia Expected: 05/28/2024, Expires: 05/28/2025 FERRITIN Lab Routine Chronic anemia Expected: 05/28/2024, Expires: 05/28/2025 IRON, TIBC, AND PERCENT SATURATION Lab Routine Chronic anemia Expected: 05/28/2024, Expires: 05/28/2025 METHYLMALONIC ACID Lab Routine Chronic anemia Expected: 05/28/2024, Expires: 05/28/2025 TRANSFERRIN RECEPTOR TFR SOLUBLE Lab Routine Chronic anemia Expected: 05/28/2024, Expires: 05/28/2025 VITAMIN B12 AND FOLATE Lab Routine Chronic anemia Expected: 05/28/2024, Expires: 05/28/2025 GLYNN SCREEN W/REFLEX Lab Routine Leukopenia, unspecified type Expected: 05/28/2024, Expires: 05/28/2025 PERIPHERAL BLOOD SMEAR PATHOLOGY INTERP Lab Routine Leukopenia, unspecified type Expected: 05/28/2024, Expires: 05/28/2025 US ABDOMEN COMPLETE Imaging Routine Leukopenia, unspecified type 1 Occurrences starting 05/28/2024 until 05/28/2025 documented as of this encounter Visit Diagnoses Diagnosis Chronic anemia- Primary Anemia, unspecified Leukopenia, unspecified type documented in this encounter Care Teams Energy Attorney Relationship Specialty Start Date End Date Angie Lowery DO [facility] [place] [id number] PCP - General Family Practice 04/13/24 documented as of this encounter
== END 2024-06-18 08:34 | disposition home or self-care (01) ==
PROVIDERS: PCP Family Medicine; Visit Provider Internal Medicine Hematology & Oncology
DX: D72.819 Decreased white blood cell count, unspecified (principal)
CPT/HCPCS: 76700

== ENCOUNTER 2024-07-27 14:36 | Outpatient (CLI) | payer OTHER, SELFPAY ==
--- NOTE | ~2024-07-27 | MM_ITS ---
EXAMINATION: MM screening agapito BI w nicho HISTORY: Screening TECHNIQUE: Craniocaudal and mediolateral oblique 3-D tomosynthesis images were obtained and synthetic 2-D images were generated. CAD analysis was submitted and interpreted. COMPARISON: 12/08/2022 BREAST PARENCHYMAL COMPOSITION: Dense: The breasts are extremely dense, which lowers the sensitivity of mammography. FINDINGS: There is no evidence of suspicious mass, calcification, or architectural distortion to sugg est malignancy in either breast. There has been no suspicious interval change. IMPRESSION: 1. No mammographic evidence of malignancy. 2. Recommend routine screening mammography in one year. BI-RADS Category 1: Negative Reviewed, dictated and finalized at location A. R OFFICER
--- OUTSIDE RECORDS SUMMARY | 2024-07-27 14:39 | XMS_ITS | Referral Summary ---
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
--- OUTSIDE RECORDS SUMMARY | 2024-07-27 14:39 | XMS_ITS | Clinical Summary ---
Author Organization [facility] [address] [place] Address [address] [place] [address] Care Team Providers Care Tax Expert Name Role Phone Angie Lowery DO Primary Care Provider + Angie Lowery DO Unavailable [phone] Social History Tobacco Use Types Packs/Day Years Used Date Smoking Tobacco: Never Assessed Personal Safety Answer Date Recorded Getting School Help Needed Not on file 09/17 Comments No Sex and Gender Information Value Date Recorded Sex Assigned at Not on file Legal Sex Female 8:04 PM MEDICAL EDITOR Gender Identity Not on file Sexual Orientation [...] Recently Relevant to Health Maintenance Insurance [employer] [place] HMO/POS Care Teams Tax Expert Relationship Specialty Start Date End Date Angie Lowery DO PCP - General 03/06/22 Angie Lowery DO Family Medicine 03/06/22
--- OUTSIDE RECORDS SUMMARY | 2024-07-27 14:40 | XMS_ITS | Encounter Summary ---
Author Organization [facility] Address [address] [place] [address] Care Team Providers Care Channel Executive Name Role Phone Angie Lowery DO Primary Care Provider + Encounter Details Date Type Department Care Team (Late st Contact Info) Description 07/25/2024 External Device Data STL ABSTRACTION Provider, Abstract NO ADDRESS ON FILE Social History Tobacco Use Types Packs/Day Years Used Date Smoking Tobacco: Never Smokeless Tobacco: Never Alcohol Use Standard Drinks/Week Comments Yes 0 (1 standard drink = 0.6 oz pur e alcohol) occassionaly Comments Unknown Sex and Gender Information Value Date Recorded Sex Assigned at Not on file Legal Sex Female 11:01 AM CDT Gender Identity Not on file Sexual Orientation Not on file documented as of this encounter Plan of Treatment Upcoming Encounters Date Type Department Care Team (Late st Contact Info) Description 01/09/2025 2:30 PM CDT Office Visit [facility] Oncology and Hematology - [place] [address] [place] [address] [facility] [address] [place] [address] Jeffrey Hatch MD [address] [facility] [address] [place] [address] documented as of this encounter Visit Diagnoses Not on filedocumented in this encounter Care Teams Channel Executive Relationship Specialty Start Date End Date Angie Lowery DO [address] [place] [address] [place] [address] PCP - General Family Practice 04/13/24 documented as of this encounter
--- OUTSIDE RECORDS SUMMARY | 2024-07-27 14:40 | XMS_ITS | Clinical Summary ---
Author Organization [employer] Address [address] [facility] [place] [address] Care Team Providers Care Munitions Handler Name Role Phone Sebastián Angie Bowens Primary Care Provider [phone] Source Comments [facility] [employer],non-owned Affiliates and Associated Physician Practices is amultiple site organization consisting of ambulatory clinics and hospital sitesin [place], [place], [place] and [place]. This disclosure is being madepursuant to the Care Everywhere program and may not contain all information available regarding this patient. Last updated 18.[employer] Allergies No known active allergies Medications [...] Comments Blood Pressure 100/60 05/17/2022 11:17 AM DIRECTOR CHECK Pulse 81 05/17/2022 11:17 AM DIRECTOR CHECK Temperature 36.7 ??C (98 ??F) 05/17/2022 11:17 AM DIRECTOR CHECK Respiratory Rate 16 05/17/2022 11:17 AM DIRECTOR CHECK Oxygen Saturation 100% 05/17/2022 11:17 AM DIRECTOR CHECK Inhaled Oxygen Concentration - - Weight 53.1 kg (117 lb) 05/17/2022 11:17 AM DIRECTOR CHECK Height 167.6 cm (5' 6 ) 05/17/2022 11:17 AM DIRECTOR CHECK Body Mass Index 18.88 05/17/2022 11:17 AM DIRECTOR CHECK Plan of Treatment Health Maintenance Due Date [...] of 3 - 19+ 3-dose series) 1989 PNEUMOCOCCAL VACCINE 50+ (1 of 1 - PCV) 2020 ZOSTER VACCINE (1 of 2) 2020 COVID-19 VACCINE (1 - 2023-2 5 season) 2024 INFLUENZA VACCINE (#1) 2024 DEPRESSION SCREENING 07/04/2024 HIB VACCINE Aged Out No longer eligi ble based on patient's age to complete this topic HPV VACCINE Aged Out No longer eligi ble based on patient's age to complete this topic MENINGOCOCCAL (Group B) VACCINE Aged Out No longer eligible based on patient's age to complete this topic MENINGOCOCCAL VACCINE Aged Out No clinton clara eligible based on patient's age to complete this topic PNEUMOCOCCAL VACCINE Aged Out No long er eligible based on patient's age to complete this topic Care Teams Munitions Handler Relationship Specialty Start Date End Date Angie Lowery DO [address] [facility] [address] [place] [id number] PCP - General Family Medicine 05/04/22
--- OUTSIDE RECORDS SUMMARY | 2024-07-27 14:40 | XMS_ITS | Data Portability ---
Author Organization [facility] Address [address] [place] [address] Care Team Providers Care Technologist Infectious Disease Name Role Phone SEAN CASTANEDA Primary Care Provider [phone] Assessment Encounter Date Assessment Date Assessment LastModified by Organization Details LastModified Time 12/07/2022 12/07/2022 Annual gynecological exam performed. Patient will come back in a year unless there are new symptoms. [email or web address] Not available 12/07/2022 12:00:33 05/28/2024 05/28/2024 Annual gynecological exam performed. Patient will come back in a year unless there are new symptoms. [email or web address] Not available 05/28/2024 12:04:26 Plan of Treatment Reminders Order Date Submit Date Provider Last Modified By Organization Details Last Modified Time Details Appointments None recorded. Lab hormone panel, serum or plasma 2022 023 [facility] (Lab), [address], [place], [address], 3 16:37:53 progesteron e, serum 2022 023 [facility] (Lab), [address], [place], [address], 3 16:37:52 prolactin, serum 2022 023 [facility] (Lab), [address], [place], [address], 3 16:37:52 shbg (sex hormone-bin ding globulin), serum 2022 023 [facility] (Lab), [address], [place], [address], 3 16:37:54 TSH, serum or plasma 2022 023 [facility] (Lab), [address], [place], [address], 3 16:37:53 testosteron e free/testos terone total, ratio, serum 2022 023 [facility] (Lab), [address], [place], [address], 3 16:37:54 Referral None recorded. Procedures None recorded. Surgeries None recorded. Imaging MAMMO, screening, bilateral 2022 023 [facility], [address], [facility] [address], [place], [address], 3 05:01:12 MAMMO, screening, digital, bilateral 2023 024 [facility], [address], [address], [place], [address], 4 04:03:41 Medication Orders estradiol 1 mg tablet 2022 023 [id number], [address], [place], [id number], 4 12:24:14 progesteron e micronized 100 mg capsule 2022 023 [facility][id number], [address], [place], [id number], 4 12:24:18 Phexxi 1.8 %-1 %-0.4 % vaginal gel 2022 023 [email or web address] 1 [id number], [address] [place], [address], 4 12:05:29 CombiPatch 0.05 mg-0.14 mg/24 hr transdermal 2023 024 JENIFFER [id number], [address] [place], [address], 4 12:24:05 Patient TargetsNo targets recorded. Patient [...] Repor t Case: [id number] Autho yas vital Provi malinda: Alayna Fuller [...] derat ions. Not Available [facility] [address], [place], [address], 02/03/2022 14:14:40 02/23/20 22 02/22/2022 SURGI BRIGIDO PATHO LOGY surgical pathology SEE RESULT S BELOW CASE REPOR T: Surgi brigido Patho logy Repor t Case: [id number] Autho yas vital Provi malinda: Alayna [...] NT: The previ ous Pap smear ([id number]) and HPV mRNA test resul ts are [...] Gross ed by Yael merino Not Available [facility] [address] [place], [address], 02/24/2022 09:11:52 08/12/19 23 08/12/2022 PROGE STERO NE progesterone 0.36 NG/mL This assay was perfo rmed using [employer] ratio n reage nts and test kits. Value s obtai germain with other assay metho ds or kits canno t be used inter [facility] . Femal e Proge stero ne Range s: Folli cular phase 0.06- 0.89 ng/mL Ovula tion phase 0.12- 12.00 ng/mL Lutea l phase 1.83- 23.90 ng/mL Postm enopa usal< 0.05- 0.13 ng/mL Healt hy Pregn ant Women 1st Trime ster1 1.0-4 4.30 2nd Trime ster2 5.40- 83.30 3rd Trime ster5 8.70- 214.[address] [facility] (Lab) [address] [place], [address], 08/17/2022 16:37:51 08/12/19 23 08/12/2022 PROLA CTIN prolactin, total 12.80 NG/mL 4.79-2 3.30 This assay was perfo rmed using [employer] ratio n reage nts and test kits. Value s obtai germain with other assay metho ds or kits canno t be used inter [facility] . Not Available [facility] (Lab) [address] [place], [address], 08/17/2022 16:37:52 08/12/19 23 08/12/2022 FSH, LH, ESTRA DIOL estradiol 10.9 pg/mL This assay was perfo rmed using [employer] ratio n reage nts and test kits. Value s obtai germain with other assay metho ds or kits canno t be used inter [facility] . Femal e Estra diol Range s: Folli cular phase 12.4- 233 pg/mL Ovula tion phase 41.0- 398 pg/mL Lutea l phase 22.3- 341 pg/mL Postm enopa usal< 5-138 pg/mL Healt hy Pregn ant Women 1st Trime ster1 54-32 43 pg/mL 2nd Trime ster1 561-2 1280 pg/mL 3rd Trime ster8 525-> 39068 pg/mL Not Available [facility] (Lab) [address], [place], [address], 08/17/2022 16:37:53 08/12/19 23 08/12/2022 FSH, LH, [...] use: 25.8- 134.8 mIU/m L Not Available [facility] (Lab) [address], [place], [address], 08/17/2022 16:37:53 08/12/19 23 08/12/2022 FSH, LH, [...] use: 7.7-5 8.5 mIU/m L Not Available [facility] (Lab) [address], [place], [address], 08/17/2022 16:37:53 08/12/19 23 08/12/2022 TSH, REFLE X FREE T4 TSH 2.79 uIU/m L 0.30-[address] [facility] (Lab) [address], [place], [address], 08/17/2022 16:37:53 08/12/19 23 08/12/2022 HUMAN SEX HORMO NE NEELAM NG CARYL ARRIETA sex hormone binding globulin 86.2 nmole s/L 16.8-[address] [facility] (Lab) [address], [place], [address], 08/17/2022 16:37:54 08/12/19 23 08/12/2022 TESTO STERO [...] cteri stics have been deter mined by [employer]. It has not been clear ed or appro leticia by the FDA. This assay has been valid ated pursu ant to the CLIA regul ation s and is used for clini brigido purpo ses. Not Available [facility] (Lab) [address], [place], [address], 08/17/2022 16:37:54 08/12/19 23 08/12/2022 TESTO STERO NE, FREE( DIALY SIS) AND TOTAL (LC/M S/MS) testosterone , free 0.7 pg/mL 0.1-6. 4 This test was devel oped and its isela tical perfo rmanc e lisa cteri stics have been deter mined by [employer]. It has not been clear ed or appro leticia by the FDA. This assay has been valid ated pursu ant to the CLIA regul ation s and is used for clini brigido purpo ses. Perfo rming Organ izati on Rodney handley: Site ID: [id number] Name: [facility] Addre ss: [id number] [address] [facility] [place] [address] Direc tor: Fiorella padilla M.D. Not Available [facility] (Lab) [address], [place], [address], 08/17/2022 16:37:54 12/08/19 23 12/07/2022 IMAGE GUIDE D PAP AND HPV REGAR DLESS image guided Pap, HPV regardless of Pap result SEE RESULT S BELOW CASE REPOR T: Cytol ogy Gynec ologi brigido Repor t Case: [id number] Autho yas zahraa Provi malinda: Pee Tomlinson Colle cted: 12/07 1418 HEALTH AND WELLNESS ADVISOR Order ing Locat ion: [place] Patho logy [...] as clini riri smith nted. Not Available [facility] (Lab) [address], [place], [address], 12/12/2022 08:18:28 05/28/20 24 05/28/2024 IMAGE GUIDE [...] as clini riri luis nted. Not Available [facility] (Lab) [address], [place], [address], 06/07/2024 17:51:54 03/16/20 22 03/06/2022 MAMMO , scree deep, bilat eral No observ ation record ed. [facility] [address], [place], [address], 03/19/2022 12:04:16 12/09/19 23 12/08/2022 MAMMO , scree deep, bilat eral No observ ation record ed. [email or web address] [address], [place], [address], 04/21/2023 15:01:51 Result Notes None recorded. Procedures Surgical History Date Name Laterality Status Provider Name and Address Organization Details Recorded Time 05/28/20 24 Date of Last Pap Smear completed Talya Farooq [facility] 05/28/2024 13:11:21 12/09/19 23 Date of Last Mammogram completed Talya Farooq [facility] 05/28/2024 12:07:49 08/26/19 23 IUD Removal completed Troy Fuller MD [address], [place], [address], [facility] 08/26/2022 23:40:32 02/23/20 22 Colposcopy completed [facility] 05/28/2024 12:07:12 02/23/20 22 Colposcopy completed [facility] 05/28/2024 12:10:54 02/21/20 22 Colposcopy completed Troy Fuller MD [address], [place], [address], [facility] 02/21/2022 19:08:37 07/04/19 16 hernia repair completed [facility] 05/28/2024 12:09:43 07/04/19 16 stripping of vein completed [facility] 05/28/2024 12:09:47 07/04/18 86 mastoidectomy completed [facility] 05/28/2024 12:10:16 07/04/18 86 extraction of wisdom tooth completed [facility] 05/28/2024 12:10:25 07/04/18 81 Tonsillectomy completed [facility] 05/28/2024 12:10:39 Imaging Results Imaging Date Name Status LastModified by Organiz ation Details LastModified Time 03/06/2022 MAMMO, screening, bilateral completed JENIFFER [facility] [address], [place], [address], 03/19/2022 12:04:16 12/08/2022 MAMMO, screening, bilateral completed [email or web address] [facility] [address], [place], [address], 04/21/2023 15:01:51 Procedure Notes None recorded. Medical [...] Updated DateTime 02/20/2022 165.1 cm 19.3 kg/m2 45939.71 g 114 mm[Hg] 75 mm[Hg] Precious Clifford [facility] 2 09:35:05 Date Recorded Body height Body mass index (BMI) Body weight Systolic blood pressure Diastolic blood pressure Provider Name and Address Organization Details Last Updated DateTime 08/05/2022 165.1 cm 20.3 kg/m2 55746.27 g 101 mm[Hg] 68 mm[Hg] Larissa Orlando [facility] 3 12:32:16 Date Recorded Body height Body mass index (BMI) Body weight Systolic blood pressure Diastolic blood pressure Provider Name and Address Organization Details Last Updated DateTime 08/26/2022 165.1 cm 20 kg/m2 67631.08 g 124 mm[Hg] 75 mm[Hg] Larissa Orlando [facility] 3 11:53:25 Date Recorded Body height Body mass index (BMI) Body weight Systolic blood pressure Diastolic blood pressure Provider Name and Address Organization Details Last Updated DateTime 12/07/2022 165.1 cm 19.8 kg/m2 82236.49 g 97 mm[Hg] 62 mm[Hg] Zeenat Parson [facility] 3 12:01:16 Date Recorded Body height Body mass index (BMI) Body weight Systolic blood pressure Diastolic blood pressure Provider Name and Address Organization Details Last Updated DateTime 05/28/2024 165.1 cm 20.5 kg/m2 86762.86 g 108 mm[Hg] 71 mm[Hg] Talya Farooq [facility] 4 12:05:04 Social History Question Answer Notes LastModified by Organizat ion Details LastModified Time Tobacco Smoking Status Unknown If Ever Smoked Talya Farooq [email or web address], [facility] 05/28/2024 12:09:16 Do You Have An [...] Or The Highest Degree You Have Received? 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 [id number] Information not available 01/29/2022 Do You Use Any Illicit Or Recreational Drugs? No Information not available 01/29/2022 Do You Use Sunscreen Routinely? Yes Information not available 01/29/2022 Has Tobacco Cessation Counseling Been Provided? No [email or web address] Information not available 05/28/2024 Have You Used IV Drugs? No Information not available 01/29/2022 Do You Or Have You Ever Used Any Other Forms Of Tobacco Or Nicotine? No [email or web address] Information not available 05/28/2024 Sex: Unknown Functional Status Question Answer Note LastModified by Organizat ion Details LastModified Time Do you have difficulty walking or climbing stairs? No [email or web address] Information not available 05/28/2024 Are you able to walk? [email or web address] Information not available 01/29/2022 Are you able to care for yourself? Yes [email or web address] Information not available 05/28/2024 Do you have difficulty dressing or bathing? No [email or web address] Information not available 05/28/2024 What is your [...] Diagnosis/Indication Diagnosis SNOMED-CT Code Diagnosis ICD10 Code Diagnosis Note [id number] Troy Fuller MD [facility] [address] [address] 01/29/2022 12:19:11 01/29/2022 14:34:37 Gynecologic examination [id number] Z01.419 Annual gynecologi brigido exam performed. Patient will come back in a year unless there are new symptoms. Suggest Calcium with Vitamin D if not eating in diet. Patient advised to get annual flu shot. Recommend yearly physicals and preform monthly breast exams. Genetic testing is available for patients with family history of cancer. Engage in safe sexual practices, use condoms. Encouraged to have daily exercise. Avoid tobacco and illicit drugs, moderation of alcohol. If BMI greater than 25 dietary consult advised. If you have any questions please call or email. Mammogram - ordered Colonoscop y - unsure Bone Density - na Cholestero l - to wait Pap - today [id number] Troy Fuller MD [facility] [address],[place] [address] 02/20/2022 09:20:50 02/22/2022 15:04:51 Abnormal cervical Papanicolaou smear [id number] R87.619 colposcopy was performed. It was unsatisfac tory. ECC was performed. [id number] Troy Fuller MD [facility] [address],[place] [address] 08/05/2022 11:58:59 08/05/2022 13:39:06 Abnormal uterine bleeding 4770220252 9100 N93.9 Menopausal symptom 88936 002 N95.1 [facility] ion care management 205898157 Z30.9 [id number] Troy Fuller MD [facility] [address],[place] [address] 08/26/2022 11:42:04 08/27/2022 09:56:50 Menopausal symptom 05195834 N95.1 51-year-ol d female who presents for follow-up on menopausal symptoms. She has an IUD. We checked labs. She was very postmenopa usal on her laboratory evaluation . We agreed to remove IUD. She has not had menses in 2 years. . We agreed to remove IUD. Was removed without complicati ons. Talked about hormone replacemen t therapy. She uses topical creams historical ly for progestero ne and estrogen. These are compound. We talked about that. I prescribed a compound did medication s. There we talked about is prescribed oral medication s and agreed to that. We 20 minutes face-to-fa ce. More than 50% was counseling . We removed IUD. She tolerated it well. [id number] [facility] [address] [address] 12/07/2022 11:46:10 12/07/2022 12:43:25 Gynecologic examination 07593568 Z01.419 Take Calcium with Vitamin D 12-1500mg daily. Do monthly self breast exams. It is advised to get annual flu shot in the fall and she could obtain at [facility] or [facility] clinic. If you haven't received the Tdap vaccine in the last 10 years you should obtain one as well. Have mammogram yearly, bone density every 2-3 years and colonoscop y every 5-10 years depending on findings and history. Engage in daily exercise of low impact aerobic exercise 45-60 minutes 4-5 times weekly. Avoid tobacco and illicit drugs as well as using moderation with alcohol intake less than 1-2 8 oz beverages daily. This lifestyle behavior pattern will lead to less health conditions and longer life span. If BMI greater than 25 weight watchers or dietary consult advised. Questions have been answered. Patient appears to understand instructio ns, but if you have any further questions call or respond to this email Pap/hpv sent Counseled on Pap/HPV guidelines /Testing/R esults with understand ing verbalized .All questions answered to patient satisfacti on. STD Screen declined Genetic Screen declined Colon Screen PCP Dexa Screen PCP Routine Labs PCP Screening mammography 24 838921 Z12.31 [facility] ion care management 705812950 Z30.9 Discussed trial of phexxi to use for 10mos post-IUD removal.FS H/LH point to menopause but she still has yet to complete 12mos of absence of periods on her own.She recently started HRT/Had IUD mirena taken out; had a short period recently; we agreed to monitor over the next 3mos; if periods return we need to update labs/US as precaution . Likely could be from HRT/IUD changes we recently made. No other sx's [id number] ELDA Marcelino [facility] [address] [address] 05/28/2024 11:51:50 05/28/2024 13:20:41 Gynecologic examination 76083812 Z01.419 WWEpostmen opausalPap - updatedSTI screen - declinedMa mmogram - order givenColon cancer screening - UTDDexa - n/aRoutine labs - UTD/PCPRTC in 1 yr or sooner if needed Do monthly self breast exams.It is advised to get annual flu shot in the fall and she could obtain at local pharmacy. If you haven't received the Tdap vaccine in the last 10 years you should obtain one as well.Have mammogram yearly, bone density every 2-3 years and stay up to date on colon cancer screening. Engage in regular exercise. Avoid tobacco and illicit drugs. This lifestyle behavior pattern will lead to less health conditions and longer life span. If BMI greater than 25 dietary consult advised.Qu estions have been answered. Screening for malignant neoplasm of breast 502210116 Z12.39 Hormone re placement therapy 447909724 Z79.890 would like to switch to combi patchr/b/a reviewed, rx sent Health Concerns Section Related Observation LastModified by Organization Detai ls LastModified Time None Recorded Concern Status LastModified by Organization Details LastModified Time None Recorded Advance Directives Directive N: Payers Encounter Date Sequence Insurance Name Policy Number Policy Santiago Covered Member ID Santiago Member ID Guarantor Name 02/20/2022 1 [employer] [id number] Elodia Cutler [id number] Elodia Cutler 08/05/2022 1 [employer] - OPEN ACCESS PLUS [id number] Elodia Cutler [id number] Elodia Cutler 08/26/2022 1 [employer] - OPEN ACCESS PLUS [id number] Elodia Cutler [id number] Elodia Cutler 12/07/2022 1 [employer] - OPEN ACCESS PLUS [id number] Elodia Cutler [id number] Elodia Cutler 05/28/2024 1 [facility] [id number] Elodia Cutler [id number] Elodia Cutler Notes Date Note Type Note Provider Name and Address Organization Details Recorded Time 2 text/html Patient presents for colposcopic examination. She had a mildly abnormal Pap smear. Troy Fuller MD [address], [place], [address], [facility] 02/21/2022 19:09:22 3 text/html This patient [...] pharmacy. We spent more than 20 minutes [id number]. More than 50% was counseling. Talked about IUD removal and whether was prudent to not. This time we have no confirmation that she is in menopause and that no risk of getting so we will try to confirm that with labs. She is going to discontinue her hormone replacement therapy for a week and get labs drawn. Troy Fuller MD [address], [place], [address], [facility] 08/05/2022 13:31:22 3 text/html 51-year-old female [...] and agreed to that. We 20 minutes [id number]. More than 50% was counseling. We removed IUD. She tolerated it well. Troy Fuller MD [address], [place], [address], [facility] 08/26/2022 23:41:09 3 text/html Annual GYNReported [...] colonoscopy screening ELDA Chaudhry- [address], [place], [address], [facility] 12/07/2022 12:43:18 4 text/html Annual Director Of Alumni Relations Post-MenopausalReported bypatient.Menopausal Symptoms:no menopausal symptoms; normal vaginal [...] flashes controlled ELDA Marcelino [address], [place], [address], [facility] 05/28/2024 13:15:11 OBGyn Episode Ob Episode Information Episode Created Date Number of Fetuses Patient Bloodtype Patient rh Status Prepregnancy Weight lbs Domestic Partner Domestic Partner Phone Father Name Front End Driver Status 01/30/20 22 1 CLOSED Fetus Data First Name Last Name Admitted to NICU Weight (g) Sex Living Outcome Pediatric Complications Fetus ID Race Codes Race Delivery Type 2721.55 2 M Prematur [place] 49360 Vaginal Delivery Manoj Calculation Initial Manoj Date Initial Exam Date Initial Exam Provider Initial Ultrasound Date Last Menstrual Period Date Ultra Sound Weeks Gestation 0 Eighteen To Twenty Week Manoj Update Ultra Sound Date Fundal Height At Umbil Quickening Date Ultra Sound Latest Weeks Gestation Final Manoj Confirmed By Final Manoj Confirmed Date Final Manoj Date Ultra Sound Latest Days Gestation 0 [...] Domestic Partner Domestic Partner Phone Father Name Front End Driver Status 01/30/20 22 1 CLOSED Fetus Data First Name Last Name Admitted to NICU Weight (g) Sex Living Outcome Pediatric Complications Fetus ID Race Codes Race Delivery Type 2551.45 5 F Prematur e 49280 Vaginal Delivery Manoj Calculation Initial Manoj Date Initial Exam Date Initial Exam Provider Initial Ultrasound Date Last Menstrual Period Date Ultra Sound Weeks Gestation 0 Eighteen To Twenty Week Manoj Update Ultra Sound Date Fundal Height At Umbil Quickening Date Ultra Sound Latest Weeks Gestation Final Manoj Confirmed By Final Manoj Confirmed Date Final Manoj Date Ultra Sound Latest Days Gestation 0 [...]
--- OUTSIDE RECORDS SUMMARY | 2024-07-27 14:40 | XMS_ITS | Patient Health Summary ---
Author Organization [facility] Address [address] [place] [address] Care Team Providers Care Tarring Machine Operator Name Role Phone Lowery Angie Kwan THURMAN Primary Care Provider [phone] Note from [facility],non-owned Affiliates and Associated Physician Practices is amultiple site organization consisting of ambulatory clinics and hospital sitesin [place], [place], [place] and [place]. This disclosure is being madepursuant to the Care Everywhere program and may not contain all information available regarding this patient. Last updated [email or web address] Allergies No known active allergies Medications Be [...] Comments Blood Pressure 100/60 05/17/2022 11:17 AM BUS STEWARD Pulse 81 05/17/2022 11:17 AM BUS STEWARD Temperature 36.7 ??C (98 ??F) 05/17/2022 11:17 AM BUS STEWARD Respiratory Rate 16 05/17/2022 11:17 AM BUS STEWARD Oxygen Saturation 100% 05/17/2022 11:17 AM BUS STEWARD Inhaled Oxygen Concentration - - Weight 53.1 kg (117 lb) 05/17/2022 11:17 AM BUS STEWARD Height 167.6 cm (5' 6 ) 05/17/2022 11:17 AM BUS STEWARD Body Mass Index 18.88 05/17/2022 11:17 AM BUS STEWARD Procedures * LAB(Performed 03/18/2022) Results * LAB (03/18/2022) Scanned Document SCANNING ONLY Care Teams Tarring Machine Operator Relationship Specialty Start Date End Date Angie Lowery DO [address] [place] [id number] PCP - General Family Medicine 05/04/22
--- OUTSIDE RECORDS SUMMARY | 2024-07-27 14:40 | XMS_ITS | Clinical Summary ---
[facility] Address [address] [place] [address] Care Team Providers Care Supervisor Computer Operations Name Role Phone Angie Lowery DO Primary Care Provider + Allergies No known active allergies Medications PROGESTERONE MICRONIZED ORAL Take by mouth. Active estrogens,esteri fied (ESTERIFIED ESTROGENS ORAL) Take by mouth. Active Active Problems No known active problems Encounters Date Type Department Care Team Description 07/25/2024 External Device Data [facility] ABSTRACTION Provider, Abstract 07/17/2024 External Device Data [facility] ABSTRACTION Provider, Abstract 07/11/2024 4:30 PM APPEALS SPECIALIST Telephone Check Up [facility] Oncology and Hematology - [place] [address] [place] [phone] Jeffrey Hatch MD Chronic anemia (Primary Dx) 06/19/[address] [facility]ology - [place] [address] [place] [address] Jeffrey Hatch MD 06/05/[address] [facility] On[facility] Hematology - [place] [address] [place] [address] Jeffrey Hatch MD 06/04/[address] [facility] Hematology - [place] [address] [place] [address] Jeffrey Hatch MD 05/29/2024 External Device Data [facility] ABSTRACTION Provider, Abstract 05/29/[address] [facility] Oncology [facility] Hematology - [place] [address] [place] [address] Jeffrey Hatch MD 05/28/2024 3:00 PM APPEALS SPECIALIST Office Visit [facility] On[facility] and Hematology - [place] [address] [place] [address] Jeffrey Hatch MD Chronic anemia [...] Comments Blood Pressure 102/64 05/28/2024 3:13 PM APPEALS SPECIALIST Pulse 72 05/28/2024 3:13 PM APPEALS SPECIALIST Temperature 36.8 ??C (98.2 ??F) 05/28/2024 3:13 PM CS T Respiratory Rate 16 05/28/2024 3:13 PM APPEALS SPECIALIST Oxygen Saturation 98% 05/28/2024 3:13 PM APPEALS SPECIALIST Inhaled Oxygen Concentration - - Weight 55.3 kg (122 lb) 05/28/2024 3:13 PM APPEALS SPECIALIST Height 165.1 cm (5' 5 ) 05/28/2024 3:13 PM APPEALS SPECIALIST Body Mass Index 20.3 05/28/2024 3:13 PM APPEALS SPECIALIST Plan of Treatment Upcoming Encounters Date Type Department Care Team (Late st Contact Info) Description 01/09/2025 2:30 PM CDT Office Visit [facility] Oncology [facility] Hematology - [place] [address] [place] [address] Jeffrey Hatch MD [address] [facility] [address] [place] [address] Health Maintenance Due Date Last [...] SCREENING 03/06/2023 03/06/2022 INFLUENZA VACCINE (#1) 2024 Preventative Visit- Commercial 07/04/2024 05/28/2024, 12/07/2022, 01/29/2022 CERVICAL CANCER SCREENING 05/28/20272023, 12/07/2022 PNEUMOCOCCAL VACCINE 0-64 YEARS Aged Out No longer eligible b ased on patient's age to complete this topic Procedures Procedure Name Priority Date/Time Associated Diagnosis Comments US ABDOMEN COMPLETE Routine 06/18/2024 1 1:14 AM APPEALS SPECIALIST METHYLMALONIC ACID Routine 06/02/2024 9: 47 AM APPEALS SPECIALIST PERIPH BLOOD SMEAR, SUPPLEMENTAL Routine 05/29/2024 1:24 PM APPEALS SPECIALIST GLYNN PANEL Routine 05/28/2024 3:41 PM APPEALS SPECIALIST PERIPHERAL BLOOD SMEAR EVAL Routine 05/28/2024 3:12 PM APPEALS SPECIALIST COMPREHENSIVE METABOLIC PANEL Routine 05/28/2024 11:39 AM APPEALS SPECIALIST CBC WITH DIFFERENTIAL Routine 05/28/2024 11:30 AM APPEALS SPECIALIST CBC WITH DIFFERENTIAL Routine 05/28/2024 11:27 AM APPEALS SPECIALIST from Last 3 Months Results * US ABDOMEN COMPLETE (06/18/2024 11:14 AM APPEALS SPECIALIST) Anatomical Region Laterality Modality Abdomen Other Jeffrey Hatch MD US ORDERABLES Final Result * METHYLMALONIC ACID (06/02/2024 9:47 AM APPEALS SPECIALIST) Blood Jeffrey Hatch MD CHEMISTRY ORDERABLES Final Resu lt * PERIPH BLOOD SMEAR, SUPPLEMENTAL (05/29/2024 1:24 PM APPEALS SPECIALIST) Blood us Jeffrey Hatch MD CHEMISTRY ORDERABLES COM Final Result * GLYNN PANEL (05/28/2024 3:41 PM APPEALS SPECIALIST) Blood us Jeffrey Hatch MD CHEMISTRY ORDERABLES Final Resu lt * PERIPHERAL BLOOD SMEAR EVAL (05/28/2024 3:12 PM APPEALS SPECIALIST) Blood Result Chiquis Hathc MD HEMATOLOGY ORDERABLES Final Res ult * COMPREHENSIVE METABOLIC PANEL (05/28/2024 11:39 AM APPEALS SPECIALIST) Blood Result [facility] us Jeffrey Hatch MD CHEMISTRY ORDERABLES Final Resu lt * CBC WITH DIFFERENTIAL (05/28/2024 11:30 AM APPEALS SPECIALIST) Only the most recent of2 resultswithin the time period is included. Blood Result Chiquis Hatch MD HEMATOLOGY ORDERABLES Final Res ult from Last 3 Months Insurance [facility] [id number] [facility] Address: [facility] [address] [place] [address] Care Teams Supervisor Computer Operations Relationship Specialty Start Date End Date Angie Lowery DO [address] [place] [phone] PCP - General Family Practice 04/13/24
--- OUTSIDE RECORDS SUMMARY | 2024-07-27 14:40 | XMS_ITS | Referral Summary ---
Author Organization [facility] Address [address] [place] [address] Care Team Providers Care Erp Specialist Name Role Phone Angie Lowery Primary Care Provider [phone] Source Comments [facility],non-owned Affiliates and Associated Physician Practices is amultiple site organization consisting of ambulatory clinics and hospital sitesin [place], [place], [place] and [place]. This disclosure is being madepursuant to the Care Everywhere program and may not contain all information available regarding this patient. Last updated 18.[employer] [facility] Allergies No known active allergies Medications Be [...] Comments Blood Pressure 100/60 05/17/2022 11:17 AM TRUCKER Pulse 81 05/17/2022 11:17 AM TRUCKER Temperature 36.7 ??C (98 ??F) 05/17/2022 11:17 AM TRUCKER Respiratory Rate 16 05/17/2022 11:17 AM TRUCKER Oxygen Saturation 100% 05/17/2022 11:17 AM TRUCKER Inhaled Oxygen Concentration - - Weight 53.1 kg (117 lb) 05/17/2022 11:17 AM TRUCKER Height 167.6 cm (5' 6 ) 05/17/2022 11:17 AM TRUCKER Body Mass Index 18.88 05/17/2022 11:17 AM TRUCKER Plan of Treatment Not on file Care Teams Erp Specialist Relationship Specialty Start Date End Date Angie Lowery DO [address] [facility] [address] [place] [address] PCP - General Family Medicine 05/04/22
== END 2024-07-27 14:37 | disposition home or self-care (01) ==
LOC: CHSIMG 14:37
PROVIDERS: PCP Family Medicine; Visit Provider Nurse Practitioner
DX: Z12.31 Encounter for screening mammogram for malignant neoplasm of breast (principal)
CPT/HCPCS: 77063; 77067

== ENCOUNTER 2025-01-07 09:58 | Outpatient (CLI) | payer OTHER, SELFPAY ==
--- OUTSIDE RECORDS SUMMARY | 2025-01-07 10:06 | XMS_ITS | Clinical Summary ---
Author Organization [facility] Address [address] [place] [address] Care Team Providers Care Wholesale Diamond Broker Name Role Phone Sebastián Angie Bowens Primary Care Provider [phone] Source Comments [facility],non-owned Affiliates and Associated Physician Practices is amultiple site organization consisting of ambulatory clinics and hospital sitesin [place], [place], [place] and [place]. This disclosure is being madepursuant to the Care Everywhere program and may not contain all information available regarding this patient. Last updated 18.[employer] Allergies No known active allergies Medications * Be aware that medications may not be up to date on this document. Alwaysverify current medications with the patient. No known medications Active Problems No known active problems Social History Tobacco Use Types Packs/Day Years Used Date Smoking Tobacco: Never Assessed Comments No Sex and Gender Information Value Date Recorded Sex Assigned at Not on file Legal Sex Female 9:15 AM CDT Gender Identity Not on file Sexual Orientation Not on file Last Filed Vital Signs Vital Sign Reading Time Taken Comments Blood Pressure 100/60 05/17/2022 11:17 AM ADMINISTRATIVE REPRESENTATIVE Pulse 81 05/17/2022 11:17 AM ADMINISTRATIVE REPRESENTATIVE Temperature 36.7 C (98 F) 05/17/2022 11:17 AM ADMINISTRATIVE REPRESENTATIVE Respiratory Rate 16 05/17/2022 11:17 AM ADMINISTRATIVE REPRESENTATIVE Oxygen Saturation 100% 05/17/2022 11:17 AM ADMINISTRATIVE REPRESENTATIVE Inhaled Oxygen Concentration - - Weight 53.1 kg (117 lb) 05/17/2022 11:17 AM ADMINISTRATIVE REPRESENTATIVE Height 167.6 cm (5' 6) 05/17/2022 11:17 AM ADMINISTRATIVE REPRESENTATIVE Body Mass Index 18.88 05/17/2022 11:17 AM ADMINISTRATIVE REPRESENTATIVE Plan of Treatment Health Maintenance Due Date Last Done Comments COLOGUARD (AGES 45-75) - COL ON CA SCREENING 1970 COLON MONITORING 1970 COLONOSCOPY - COLON CA SCREENING 1970 CT COLONOGRAPHY - COLON CA SCREENING 1970 Colorectal Cancer Screening 1970 FIT - COLON CA SCREENING 1970 FLEX SIG - COLON CA SCREENING 1970 LIPID TESTING 1970 MAMMOGRAM 1970 HIV SCREENING 1985 HEPATITIS C SCREENING 12/16/1988 DTAP/TDAP/TD VACCINES (1 - Tdap) 1989 HEPATITIS B VACCINE (1 of 3 - 19+ 3-dose series) 1989 PAP SMEAR 12/22/1991 PNEUMOCOCCAL VACCINE 50+ (1 of 1 - PCV) 2020 ZOSTER VACCINE (1 of 2) 2020 COVID-19 VACCINE (1 - 2023-2 5 season) 2024 DEPRESSION SCREENING 07/04/2024 INFLUENZA VACCINE (#1) 2025 HIB VACCINE Aged Out No longer eligi ble based on patient's age to complete this topic HPV VACCINE Aged Out No longer eligi ble based on patient's age to complete this topic MENINGOCOCCAL (Group B) VACC INE SHARED DECISION-MAKING Aged Out No longer eligibl e based on patient's age to complete this topic MENINGOCOCCAL GROUPS A/C/Y/W VACCINE Aged Out No longer eligible b ased on patient's age to complete this topic Insurance [employer] SELF PAY NO INSURANCE Member Subscriber Plan / Payer (Ef fective for All Dates) Name:lEodia Cutler Member ID:Not on file Relation to Subscriber:Not on file Name:ELODIA CUTLER Subscriber ID:Not on file Address: [address] [place] [id number] Payer ID:Not on file Group ID:Not on file Type:Self Pay Address: [facility] [employer] * Guarantor: ELODIA CUTLER Account Type Relation to Patient Date of Phone Billing Address Personal/Family Spouse Care Teams Wholesale Diamond Broker Relationship Specialty Start Date End Date Angie Lowery DO [address] [facility] [address] [place] [phone] PCP - General Family Medicine 05/04/22
--- OUTSIDE RECORDS SUMMARY | 2025-01-07 10:06 | XMS_ITS | Referral Summary ---
Author Organization [facility] [address] [place] [id number] Care Team Providers Care Fender Mechanic Apprentice Name Role Phone Angie Lowery DO Primary Care Provider + Angie Lowery DO Unavailable [phone] Social History Tobacco Use Types Packs/Day Years Used Date Smoking Tobacco: Never Assessed Personal Safety Answer Date Recorded Getting School Help Needed Not on file 09/17 Comments No Sex and Gender Information Value Date Recorded Sex Assigned at Not on file Legal Sex Female 8:04 PM FUR REPAIRER Gender Identity Not on file Sexual Orientation Not on file Last Filed Vital Signs Vital Sign Reading Time Taken Comments Blood Pressure - - Pulse - - Temperature - - Respiratory Rate - - Oxygen Saturation - - Inhaled Oxygen Concentration - - Weight 52.2 kg (115 lb) 03/06/2022 10:15 AM CDT Height 165.1 cm (5' 5) 03/06/2022 10:15 AM CDT Body Mass Index [...] SCREENING MAMMOGRAM HISTORY: Routine screening mammography. COMPARISON: 03/11/2021, 02/18/2020 TECHNIQUE: CC and MLO views of [...] Relevant to Health Maintenance Insurance [facility] HMO/POS Care Teams Fender Mechanic Apprentice Relationship Specialty Start Date End Date Angie Lowery DO PCP - General 03/06/22 Angie Lowery DO Family Medicine 03/06/22
--- OUTSIDE RECORDS SUMMARY | 2025-01-07 10:06 | XMS_ITS | Data Portability ---
Author Organization [facility] [place] Address [address] [place] [address] Care Team Providers Care Tray Server Name Role Phone SEAN CASTANEDA Primary Care Provider Assessment Encounter Date Assessment Date Assessment LastModified by Organization Details LastModified Time 12/07/2022 12/07/2022 Annual gynecological exam performed. Patient will come back in a year unless there are new symptoms. [email or web address] Not available 12/07/2022 12:00:33 05/28/2024 05/28/2024 Annual gynecological exam performed. Patient will come back in a year unless there are new symptoms. [email or web address] Not available 05/28/2024 12:04:26 Plan of Treatment Reminders Order Date Submit Date Provider Last Modified By Organization Details Last Modified Time Details Appointments None recorded. Lab hormone panel, serum or plasma 2022 023 [facility] (Lab), [address], [place], [address], 3 16:37:53 progesteron e, serum 2022 023 [facility] (Lab), [address], [place], [address], 3 16:37:52 prolactin, serum 2022 023 [facility] (Lab), [address] [place], [address], 3 16:37:52 shbg (sex hormone-bin ding globulin), serum 2022 023 [facility] (Lab), [address], [place], [address], 3 16:37:54 TSH, serum or plasma 2022 023 [facility] (Lab), [address], [place], [address], 3 16:37:53 testosteron e free/testos terone total, ratio, serum 2022 023 [facility] (Lab), [address], [place], [address], 3 16:37:54 Referral None recorded. Procedures None recorded. Surgeries None recorded. Imaging MAMMO, screening, digital, bilateral 2023 024 [facility], [address], [place], [address], 5 08:43:33 MAMMO, screening, bilateral [address] [facility], [address], [place], [address], 3 05:01:12 Medication Orders CombiPatch 0.05 mg-0.14 mg/24 hr transdermal 2023 024 [facility][id number], [address] [place], [address], 4 12:24:05 Phexxi 1.8 %-1 %-0.4 % vaginal gel 2022 023 [email or web address] 1 [facility] #[id number], [address] [place], [address], 4 12:05:29 estradiol 1 mg tablet 2022 023 [facility], [address], [place], [id number], 4 12:24:14 progesteron e micronized 100 mg capsule 2022 023 [facility] #01774, [address], [place], [id number], 4 12:24:18 Patient TargetsNo targets recorded. Patient InstructionsNo instructions [...] t Case: [id number] Autho yas g Provi malinda: Alayna Fuller MD Colle cted: [...] elial Lesio n (LSIL ). Elect bryson polanco by Clemente Harp MD on 022 at [...] ry: Hormo valentin (if appli cable ): SUGGE STED FOLLO W-UP: Follo w up as warra nted, based on curre nt guide lines and indiv idual patie nt consi derat ions. Not Available [facility] [address], [place], [address], 02/03/2022 14:14:40 02/23/20 22 02/22/2022 SURGI BRIGIDO PATHO LOGY surgical pathology SEE RESULT S BELOW CASE REPOR T: Surgi brigido Patho logy Repor t Case: [id number] Autho yas vital Provi malinda: Alayna [...] negat giuseppe for dyspl lissy. Elect bryson diaz masha d by Priyanka Monge MD on 2021 at 8:09 AM ----- ----- ----- ----- ----- ----- ----- ----- ----- ----- ----- ----- ----- ----- ----- ----- ----- ---- COMME NT: The previ ous Pap smear ([id number]) and HPV mRNA test resul ts are [...] Gross ed by Yael merino Not Available [facility] [address] [place], [address], 02/24/2022 09:11:52 08/12/19 23 08/12/2022 PROGE STERO NE progesterone 0.36 NG/mL This assay was perfo rmed using [employer] ratio n reage nts and test kits. Value s obtai germain with other assay metho ds or kits canno t be used inter [facility] . Femal e Proge stero ne Range s: Folli cular phase 0.06- 0.89 ng/mL Ovula tion phase 0.12- 12.00 ng/mL Lutea l phase 1.83- 23.90 ng/mL Postm enopa usal< 0.05- 0.13 ng/mL Healt hy Pregn ant Women 1st Trime ster1 1.0-4 4.30 2nd Trime ster2 5.40- 83.30 3rd Trime ster5 8.70- 214.[address] [facility] (Lab) [address] [place], [address], 08/17/2022 16:37:51 08/12/19 23 08/12/2022 PROLA CTIN prolactin, total 12.80 NG/mL 4.79-2 3.30 This assay was perfo rmed using [employer] ratio n reage nts and test kits. Value s obtai germain with other assay metho ds or kits canno t be used inter [facility] . Not Available [facility] (Lab) [address] [place], [address], 08/17/2022 16:37:52 08/12/19 23 08/12/2022 FSH, LH, ESTRA DIOL estradiol 10.9 pg/mL This assay was perfo rmed using [employer] ratio n reage nts and test kits. Value s obtai germain with other assay metho ds or kits canno t be used inter [facility] . Femal e Estra diol Range s: Folli cular phase 12.4- 233 pg/mL Ovula tion phase 41.0- 398 pg/mL Lutea l phase 22.3- 341 pg/mL Postm enopa usal< 5-138 pg/mL Healt hy Pregn ant Women 1st Trime ster1 54-32 43 pg/mL 2nd Trime ster1 561-2 1280 pg/mL 3rd Trime ster8 525-> 22265 pg/mL Not Available [facility] (Lab) [address], [place], [address], 08/17/2022 16:37:53 08/12/19 23 08/12/2022 FSH, LH, [...] 25.8- 134.8 mIU/m L Not Available [facility] (Lab) [address], [place], [address], 08/17/2022 16:37:53 08/12/19 23 08/12/2022 FSH, LH, ESTRA DIOL LH 33.8 mIU/m L This assay was perfo rmed using [employer] ratio n reage nts and test kits. Value s obtai germain with other assay metho ds or kits canno t be used inter wills eably . Femal es Mid-F ollic ular: 2.4-1 2.6 mIU/m L Mid-C ycle: 14.0- 95.6 mIU/m L Mid-L uteal : 1.0-1 1.4 mIU/m L Postm enopa use: 7.7-5 8.5 mIU/m L Not Available [facility] (Lab) [address], [place], [address], 08/17/2022 16:37:53 08/12/19 23 08/12/2022 TSH, REFLE X FREE T4 TSH 2.79 uIU/m L 0.30-[address] [facility] (Lab) [address], [place], [address], 08/17/2022 16:37:53 08/12/19 23 08/12/2022 HUMAN SEX HORMO NE NEELAM NG CARYL ARRIETA sex hormone binding globulin 86.2 nmole s/L 16.8-[address] [facility] (Lab) [address], [place], [address], 08/17/2022 16:37:54 08/12/19 23 08/12/2022 TESTO STERO NE, FREE( DIALY SIS) AND TOTAL (LC/M S/MS) testosterone , total 8 NG/dL 2-45 For addit ional chana boyd e refer to http: //anne-marie handley.zayra stdia gnost ics.c om/fa q/Tot alTes bhanu carlisleeL CMSMS (This link is being provi ded for rodney stinson/ educa sarath l purpo ses only. ) This test was devel oped and its isela tical perfo rmanc e lisa cteri stics have been deter mined by [employer]. It has not been clear ed or appro leticia by the FDA. This assay has been valid ated pursu ant to the CLIA regul ation s and is used for clini brigido purpo ses. Not Available [facility] (Lab) [address], [place], [address], 08/17/2022 16:37:54 08/12/19 23 08/12/2022 TESTO STERO NE, FREE( DIALY SIS) AND TOTAL (LC/M S/MS) testosterone , free 0.7 pg/mL 0.1-6. 4 This test was devel oped and its isela tical perfo rmanc e lisa cteri stics have been deter mined by [employer]. It has not been clear ed or appro leticia by the FDA. This assay has been valid ated pursu ant to the CLIA regul ation s and is used for clini brigido purpo ses. Perfo rming Organ izati on Rodney handley: Site ID: [id number] Name: [facility] Coronel cia Addre ss: [id number] [place] [address] Direc tor: Fiorella padilla M.D. Not Available [facility] (Lab) [address], [place], [address], 08/17/2022 16:37:54 12/08/19 23 12/07/2022 IMAGE GUIDE D PAP AND HPV REGAR DLESS image guided Pap, HPV regardless of Pap result SEE RESULT S BELOW CASE REPOR T: Cytol ogy Gynec ologi brigido Repor t Case: [id number] Autho yas vital Provi malinda: Pee Tomlinson Colle cted: 12/07 1418 GALLERY OR MUSEUM CURATOR Order ing Locat ion: [place] [facility] Recei leticia: 12/08 194 First Scree n: Olena Mahmood, CT Speci men: Jose L deep Pap - Image d, Cervi x STATE MENT OF ADEQU ACY: Satis facto ry for evalu ation Trans forma tion zone compo nent prese nt FINAL DIAGN OSIS: Negat giuseppe for Intra epith elial Randi n or Deion simmons (NIL) . Elect bryson flanagan d by Olena Mahmood, CT on [...] is recom adele d, as clini riri warrdiego nted. Not Available [facility] (Lab) [address], [place], [address], 12/12/2022 08:18:28 05/28/20 24 05/28/2024 IMAGE GUIDE D PAP AND HPV REGAR DLESS image guided Pap, HPV regardless of Pap result SEE RESULT S BELOW CASE REPOR T: Cytol ogy Gynec ologi brigido Repor t Case: [id number] Autho yas vital Provi malinda: Sherry Oliva, YARIEL Colle cted: 05/28 1419 Order ing Locat [...] OSIS: Negat giuseppe for Intra epith elial Randi handley or Deion simmons (NIL) . Elect bryson [...] Neopl lissy (if appli cable ): Signi ficdeyvi t Clini brigido Findi ngs: Other Histo [...] clini riri smith nted. Not Available [facility] (Lab) [address], [place], [address], 06/07/2024 17:51:54 03/16/20 22 03/06/2022 MAMMO , scree deep, bilat eral No observ ation record ed. [facility] [address], [place], [address], 03/19/2022 12:04:16 12/09/19 23 12/08/2022 MAMMO , scree deep, bilat eral No observ ation record ed. [email or web address] [place] [facility] [address], [place], [address], 04/21/2023 15:01:51 07/30/19 25 07/27/2024 MAMMO , scree deep, digit al, bilat eral No observ ation record ed. [facility] [address] [facility], [place], [address], 08/01/2024 13:22:34 Result Notes None recorded. Procedures Surgical History Date Name Laterality Status Provider Name and Address Organization Details Recorded Time 05/28/20 Date of Last Pap Smear completed Talya Farooq [place] - [facility] 05/28/2024 13:11:21 12/09/19 23 Date of Last Mammogram completed Talyadavid Farooq [facility] 05/28/2024 12:07:49 08/26/19 23 IUD Removal completed Troy Fuller MD [address], [place], [address], [facility] 08/26/2022 23:40:32 02/23/20 22 [facility]28[facility] 12:07:12 02/23/20 22 Colposcopy completed [facility] 05/28/2024 12:10:54 02/21/20 22 Colposcopy completed Troy Fuller MD [address], [place], [address], [facility] 02/21/2022 19:08:37 07/04/19 16 hernia repair completed [facility] 05/28/2024 12:09:43 07/04/19 16 stripping of vein completed [facility] 05/28/2024 12:09:47 07/04/18 86 mastoidectomy completed [facility] 05/28/2024 12:10:16 07/04/18 86 extraction of wisdom tooth completed [facility] 05/28/2024 12:10:25 07/04/18 81 Tonsillectomy completed [facility] 05/28/2024 12:10:39 Imaging Results None recorded. [...] Body mass index (BMI) Body weight Systolic And Diastolic Provider Name and Address Organization Details Last Updated DateTime 08/05/2022 165.1 cm 20.3 kg/m2 03759.27 g 101/68 mm[Hg] [facility] 08/05/2022 12:32:16 Date Recorded Body height Body mass index (BMI) Body weight Systolic And Diastolic Provider Name and Address Organization Details Last Updated DateTime 08/26/2022 165.1 cm 20 kg/m2 81273.08 g 124/75 mm[Hg] [facility] 08/26/2022 11:53:25 Date Recorded Body height Body mass index (BMI) Body weight Systolic And Diastolic Provider Name and Address Organization Details Last Updated DateTime 12/07/2022 165.1 cm 19.8 kg/m2 03014.49 g 97/62 mm[Hg] Zeenat Parson [facility] 12/07/2022 12:01:16 Date Recorded Body height Body mass index (BMI) Body weight Systolic And Diastolic Provider Name and Address Organization Details Last Updated DateTime 02/20/2022 165.1 cm 19.3 kg/m2 62366.71 g 114/75 mm[Hg] Precious Clifford [facility] 02/20/2022 09:35:05 Date Recorded Body height Body mass index (BMI) Body weight Systolic And Diastolic Provider Name and Address Organization Details Last Updated DateTime 05/28/2024 165.1 cm 20.5 kg/m2 60520.86 g 108/71 mm[Hg] Talya Farooq [facility] 05/28/2024 12:05:04 Social History Question Answer Notes LastModified by Organizat ion Details LastModified Time Tobacco Smoking Status Unknown If Ever Smoked Talya garnica [facility] 05/28/2024 12:09:16 Do You Have An Advance Directive? No Information not available 01/29/2022 How Many Years [...] Or The Highest Degree You Have Received? [id number] Information not available 01/29/2022 Are There Any [...] Has Tobacco Cessation Counseling Been Provided? No [email or web address] Information not available 05/28/2024 Have You Used IV Drugs? No Information not available 01/29/2022 Do You Have Difficulty Walking Or Climbing Stairs? No [email or web address] Information not available 05/28/2024 Sex: Unknown Functional Status Question Answer Note LastModified by Organizat ion Details LastModified Time Do you use any illicit or recreational drugs? No Information not available 01/29/2022 Do you or have you ever used any other forms of tobacco or nicotine? No [email or web address] Information not available 05/28/2024 What is your level of alcohol consumption? Occasional Information not available 01/29/2022 Are you able to walk? YESWOREST Information not available 01/29/2022 Are you able to care for yourself? 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 No [email or web address] Information not available 05/28/2024 What is your exercise level? Moderate Information not available 01/29/2022 Mental Status Question Answer Note LastModified by Organization D etails LastModified Time Do you feel stressed (tense, restless, nervous, or anxious, or unable to sleep at night)? [id number] Information not available 01/29/2022 Family History Nothing Reported. Medical History Condition [...] SNOMED-CT Code Diagnosis ICD10 Code Diagnosis Note [id number] Troy Fuller MD [place] [address] [address] 01/29/2022 12:19:11 01/29/2022 14:34:37 Gynecologic examination 11386026 Z01.419 Annual gynecologi brigido exam performed. Patient [...] l - to wait Pap - today [id number] Troy Fuller MD [place] [address],[place] [address] 02/20/2022 09:20:50 02/22/2022 15:04:51 Abnormal cervical Papanicolaou smear 599310211 R87.619 colposcopy was performed. It was unsatisfac tory. ECC was performed. [id number] Troy Fuller MD [place] [address],[place] [address] 08/05/2022 11:58:59 08/05/2022 13:39:06 Abnormal uterine bleeding 6593437448 9100 N93.9 Menopausal symptom 47164 002 N95.1 [facility] 979063325 Z30.9 [id number] Troy Fuller MD [place] [address],[place] [address] 08/26/2022 11:42:04 08/27/2022 09:56:50 Menopausal symptom 87921463 N95.1 51-year-ol d female who presents for [...] We removed IUD. She tolerated it well. [id number] [facility] [address],[place] [address] 12/07/2022 11:46:10 12/07/2022 12:43:25 Gynecologic examination 82181463 Z01.419 Take Calcium with Vitamin D 12-1500mg daily. Do monthly self breast exams. It is advised to get annual flu shot in the fall and she could obtain at [facility] or [facility] care clinic. If you haven't received the Tdap [...] PCP Routine Labs PCP Screening mammography 24 378043 Z12.31 [facility] ion care management 894737564 Z30.9 Discussed trial of phexxi to use [...] changes we recently made. No other sx's [id number] ELDA Marcelino [place] [address] [address] 05/28/2024 11:51:50 05/28/2024 13:20:41 Gynecologic examination 92002746 Z01.419 WWEpostmen opausalPap - updatedSTI screen - [...] answered. Screening for malignant neoplasm of breast 512860086 Z12.39 Hormone re placement therapy 836569741 Z79.890 would like to switch to combi patchr/b/a reviewed, rx sent Health Concerns Section Related Observation LastModified by Organization Detai ls LastModified Time None Recorded Concern Status LastModified by Organization Details LastModified Time None Recorded Advance Directives Directive N: Payers Insurance Date Sequence Insurance Name Policy Number Policy Santiago Covered Member ID Santiago Member ID Guarantor Name 05/31/2024 1 [facility] [id number] Elodia Cutler [id number] [facility] 05/27/2024 1 [employer] [id number] 4 Elodia Cutler [id number] [facility] 05/27/2024 1 [facility] [facility] [employer] [id number] Elodia Cutler [id number] [facility] 05/27/2024 1 [employer] [id number] Elodia Cutler [id number] Elodia Cutler Notes Date Note Type Note Provider Name and Address Organization Details Recorded Time 2 text/html Patient presents for colposcopic examination. She had a mildly abnormal Pap smear. Troy Fuller MD [address], [place], [address], [facility] 02/21/2022 19:09:22 3 text/html This patient [...] pharmacy. We spent more than 20 minutes [id number]. More than 50% was counseling. Talked about IUD removal and whether was prudent to not. This time we have no confirmation that she is in menopause and that no risk of getting so we will try to confirm that with labs. She is going to discontinue her hormone replacement therapy for a week and get labs drawn. Troy Fuller MD [address], [place], [address], [facility] 08/05/2022 13:31:22 3 text/html 51-year-old female [...] and agreed to that. We 20 minutes [id number]. More than 50% was counseling. We removed IUD. She tolerated it well. Troy Fuller MD [address], [place], [address], [facility] 08/26/2022 23:41:09 3 text/html Annual GYNReported [...] mammogram; Up to date on colonoscopy screening Lucina Blanco YARIEL- [address], [place], [address], [facility] 12/07/2022 12:43:18 4 text/html Annual Silviculture Teacher Post-MenopausalReported bypatient.Menopausal Symptoms:no menopausal symptoms; normal vaginal [...] flashes controlled ELDA Marcelino [address], [place], [address], [facility] 05/28/2024 13:15:11 OBGyn Episode Ob Episode Information Episode Created Date Number of Fetuses Patient Bloodtype Patient rh Status Prepregnancy Weight lbs Domestic Partner Domestic Partner Phone Father Name Certified Pharmacy Technician Status 01/30/20 22 1 CLOSED Fetus Data First Name Last Name Admitted to NICU Weight (g) Sex Living Outcome Pediatric Complications Fetus ID Race Codes Race Delivery Type 2721.55 2 M Prematur e 64160 Vaginal Delivery Manoj Calculation Initial Manoj Date [...] Domestic Partner Domestic Partner Phone Father Name Certified Pharmacy Technician Status 01/30/20 22 1 CLOSED Fetus Data First Name Last Name Admitted to NICU Weight (g) Sex Living Outcome Pediatric Complications Fetus ID Race Codes Race Delivery Type 2551.45 5 F Prematur e 83470 Vaginal Delivery Manoj Calculation Initial Manoj Date [...]
--- OUTSIDE RECORDS SUMMARY | 2025-01-07 10:06 | XMS_ITS | Clinical Summary ---
Author Organization [facility] Address [address] [place] [address] Care Team Providers Care Cigar Roller Name Role Phone Angie Lowery DO Primary Care Provider + Allergies No known active allergies Medications PROGESTERONE MICRONIZED ORAL Take by mouth. Active estrogens,esteri fied (ESTERIFIED ESTROGENS ORAL) Take by mouth. Active Active Problems No known active problems Encounters Date Type Department Care Team Description 12/18/2024 External Device Data STL ABSTRACTION Provider, Abstract 11/27/2024 External Device Data STL ABSTRACTION Provider, Abstract 11/21/2024 External Device Data STL ABSTRACTION Provider, Abstract 11/20/2024 External Device Data STL ABSTRACTION Provider, Abstract 11/06/2024 External Device Data STL ABSTRACTION Provider, Abstract from Last 3 Months Family History Medical [...] Comments Blood Pressure 102/64 05/28/2024 3:13 PM MURAL ARTIST Pulse 72 05/28/2024 3:13 PM MURAL ARTIST Temperature 36.8 C (98.2 F) 05/28/2024 3:13 PM MURAL ARTIST Respiratory Rate 16 05/28/2024 3:13 PM MURAL ARTIST Oxygen Saturation 98% 05/28/2024 3:13 PM MURAL ARTIST Inhaled Oxygen Concentration - - Weight 55.3 kg (122 lb) 05/28/2024 3:13 PM MURAL ARTIST Height 165.1 cm (5' 5) 05/28/2024 3:13 PM MURAL ARTIST Body Mass Index 20.3 05/28/2024 3:13 PM MURAL ARTIST Plan of Treatment Upcoming Encounters Date Type Department Care Team (Late st Contact Info) Description 01/09/2025 2:30 PM CDT Office Visit [facility] Oncology and Hematology - [place] [address] [facility] [address] [place] [address] Jeffrey Hatch MD [address] [place] [address] Health Maintenance Due Date Last Done Comments DTAP/TDAP/TD VACCINES (1 - Tdap) 1989 HEPATITIS B VACCINES (1 of 3 - 19+ 3-dose series) 1989 HPV/Cotest (21-29) 12/22/1991 HPV/Cotest (30-65) 2000 COLORECTAL SCREENING 12/22/2015 Colorectal Cancer Screening 12/22/2015 FIT-DNA Q 3 years 12/22/2015 FIT/FOBT Q 1 year 12/22/2015 Flex Sig/CT Colonography Q 5 years 12/22/2015 ZOSTER VACCINE (1 of 2) 2020 BREAST CANCER SCREENING 03/06/2023 03/06/2022, 03/06 Preventative Visit- Commercial 07/04/2024 1 07/28/2023, 12/07/2022, 01/29/2022 INFLUENZA VACCINE (#1) 2025 CERVICAL CANCER SCREENING 05/28/2027 PAP SMEAR 05/28/2027 05/28/2024, 12/07/2022 Insurance [employer] [facility] [employer] [id number] Care Teams Cigar Roller Relationship Specialty Start Date End Date Angie Lowery DO [address] [place] [address] [place] [address] PCP - General Family Practice 04/13/24
--- OUTSIDE RECORDS SUMMARY | 2025-01-07 10:06 | XMS_ITS | Clinical Summary ---
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
[2025-01-07 10:22] LABS: Hematocrit 38.4 % (37.0-47.0); Hemoglobin 13.1 g/dL (12.0-15.0); Immature Granulocyte Percent A 0.0 % (0-0.5); Lymphocytes Absolute Auto 0.63 K/mm3 (0.9-3.2); Mean Corpuscular HGB Conc 34.1 g/dl (32-36); Mean Corpuscular Hemoglobin 30.5 pg (26-34); Mean Corpuscular Volume 89.5 fl (80-100); Nucleated Red Blood Cells Absolute Auto 0.000 K/mm3 (0.0-0.012); Nucleated Red Blood Cells Perc 0.0 % (0.0-0.2); Platelet Count Result 169 k/mm3 (150-375); Red Blood Count 4.29 M/mm3 (4.2-5.4); White Blood Count 2.4 K/mm3 (4.5-10.0)
== END 2025-01-07 09:59 | disposition home or self-care (01) ==
PROVIDERS: PCP Family Medicine; Visit Provider Internal Medicine Hematology & Oncology
DX: D64.9 Anemia, unspecified (principal)
CPT/HCPCS: 36415; 85025

== ENCOUNTER 2025-03-29 08:14 | Outpatient (CLI) | payer OTHER, SELFPAY ==
--- OUTSIDE RECORDS SUMMARY | 2025-03-29 08:17 | XMS_ITS | Clinical Summary ---
Author Organization [facility] Address [address] [place] [address] Care Team Providers Care Electronic Tester Name Role Phone Angie Lowery DO Primary Care Provider + Allergies No known active allergies Medications PROGESTERONE MICRONIZED ORAL Take by mouth. Active estrogens,esteri fied (ESTERIFIED ESTROGENS ORAL) Take by mouth. Active Active Problems No known active problems Encounters Date Type Department Care Team Description 02/05/2025 External Device Data STL ABSTRACTION Provider, Abstract 01/16/2025 External Device Data STL ABSTRACTION Provider, Abstract 01/15/2025 External Device Data STL ABSTRACTION Provider, Abstract 01/09/2025 2:30 PM CDT Office Visit [facility] Oncology and Hematology - [place] [address] [facility] [address] [place] [address] Jeffrey Hatch MD Chronic anemia (Primary Dx) from Last 3 Months Family History Medical [...] Sign Reading Time Taken Comments Blood Pressure 102/63 01/09/2025 2:08 PM CDT Pulse 71 01/09/2025 2:08 PM CDT Temperature 36.9 C (98.5 F) 01/09/2025 2:08 PM CDT Respiratory Rate 16 01/09/2025 2:08 PM CDT Oxygen Saturation 97% 01/09/2025 2:08 PM CDT Inhaled Oxygen Concentration - - Weight 55.5 kg (122 lb 6.4 oz) 01/09/2025 2:08 P M CDT Height 165.1 cm (5' 5) 05/28/2024 3:13 PM LIGHTOUT EXAMINER Body Mass Index 20.37 05/28/2024 3:13 PM LIGHTOUT EXAMINER Plan of Treatment Upcoming Encounters Date Type Department Care Team (Late st Contact Info) Description 07/16/2025 11:45 AM LIGHTOUT EXAMINER Office Visit [facility] Oncology and Hematology - [place] [address] [facility] [address] [place] [address] Jeffrey Hatch MD [address] [facility] [address] [place] [address] Health Maintenance Due Date Last [...] 2020 BREAST CANCER SCREENING 03/06/2023 03/06/2022, 03/06 INFLUENZA VACCINE (#1) 2025 CERVICAL CANCER SCREENING 05/28/2027 PAP SMEAR 05/28/2027 05/28/2024, 12/07/2022 Insurance [employer] [id number] Care Teams Electronic Tester Relationship Specialty Start Date End Date Angie Lowery DO [address] [place] [address] [place] [address] PCP - General Family Practice 04/13/24
--- OUTSIDE RECORDS SUMMARY | 2025-03-29 08:17 | XMS_ITS | Clinical Summary ---
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
--- OUTSIDE RECORDS SUMMARY | 2025-03-29 08:17 | XMS_ITS | Clinical Summary ---
Author Organization [facility] Address [address] [facility] [place] [address] Care Team Providers Care Reproducer Name Role Phone Sebastián Angie Bowens Primary Care Provider [phone] Source Comments [facility],non-owned Affiliates and Associated Physician Practices is amultiple site organization consisting of ambulatory clinics and hospital sitesin [place], [place], [place] and [place]. This disclosure is being madepursuant to the Care Everywhere program and may not contain all information available regarding this patient. Last updated 18.GoYoDeo Allergies No known active allergies Medications * [...] Comments Blood Pressure 100/60 05/17/2022 11:17 AM SOAPSTONER Pulse 81 05/17/2022 11:17 AM SOAPSTONER Temperature 36.7 C (98 F) 05/17/2022 11:17 AM SOAPSTONER Respiratory Rate 16 05/17/2022 11:17 AM SOAPSTONER Oxygen Saturation 100% 05/17/2022 11:17 AM SOAPSTONER Inhaled Oxygen Concentration - - Weight 53.1 kg (117 lb) 05/17/2022 11:17 AM SOAPSTONER Height 167.6 cm (5' 6) 05/17/2022 11:17 AM SOAPSTONER Body Mass Index 18.88 05/17/2022 11:17 AM SOAPSTONER Plan of Treatment Health Maintenance Due Date [...] 2020 ZOSTER VACCINE (1 of 2) 2020 DEPRESSION SCREENING 07/04/2024 COVID-19 VACCINE (1 - 2023-2 5 season) 2025 INFLUENZA VACCINE (#1) 2025 HIB VACCINE Aged [...] / Payer (Ef fective for All Dates) Name:Elodia Cutler Member ID:Not on file Relation to Subscriber:Not on file Name:ELODIA CUTLER Subscriber ID:Not on file Address: [address] [place] [id number] Payer ID:Not on file Group ID:Not on file Type:Self Pay Address: [facility] [employer] * Guarantor: ELODIA CUTLER Account Type Relation to Patient Date of Phone Billing Address Personal/Family Spouse Care Teams Reproducer Relationship Specialty Start Date End Date Angie Lowery DO [address] [facility] [address] [place] [id number] PCP - General Family Medicine 05/04/22
[2025-03-29 18:09] LABS: Hematocrit 42.0 % (37.0-47.0); Hemoglobin 13.8 g/dL (12.0-15.0); Immature Granulocyte Percent A 0.4 % (0-0.5); Lymphocytes Absolute Auto 0.77 K/mm3 (0.9-3.2); Mean Corpuscular HGB Conc 32.9 g/dl (32-36); Mean Corpuscular Hemoglobin 30.1 pg (26-34); Mean Corpuscular Volume 91.7 fl (80-100); Nucleated Red Blood Cells Absolute Auto 0.000 K/mm3 (0.0-0.012); Nucleated Red Blood Cells Perc 0.0 % (0.0-0.2); Platelet Count Result 184 k/mm3 (150-375); Red Blood Count 4.58 M/mm3 (4.2-5.4); White Blood Count 2.7 K/mm3 (4.5-10.0)
[2025-03-29 18:23] LABS: Hemoglobin A1C 5.4 % (<5.7)
[2025-03-29 18:31] LABS: Alanine Aminotransferase 16 U/L (6-35); Albumin Level 4.5 g/dL (3.5-5.1); Alkaline Phosphatase 52 U/L (38-126); Anion Gap 6 mmol/L (4-12); Aspartate Amino Transferase 29 U/L (14-36); Bilirubin,Total 0.5 mg/dL (0.2-1.3); Blood Urea Nitrogen 10 mg/dL (7-17); Calcium 9.0 mg/dL (8.4-10.2); Carbon Dioxide 28 mmol/L (22-30); Chloride 101 mmol/L (98-107); Cholesterol 201 mg/dL (0-200); Estimated Glomerular Filt Rate > 60; Glucose 78 mg/dL (65-110); HDL Direct 59 mg/dL; Potassium 5.1 mmol/L (3.4-5.0); Sodium 135 mmol/L (137-145); Total Protein 7.6 g/dL (6.3-8.2); Triglycerides 76 mg/dL (<150)
[2025-03-29 18:44] LABS: Free T4 Free Thyroxine 1.14 ng/dL (0.78-2.19)
[2025-03-29 18:59] LABS: Thyroid Stimulating Hormone 2.200 uIU/mL (0.465-4.680)
== END 2025-03-29 08:15 | disposition home or self-care (01) ==
LOC: ANHGOSHLAB 08:15
PROVIDERS: PCP Family Medicine; Visit Provider Family Medicine
DX: D72.819 Decreased white blood cell count, unspecified (principal); E78.2 Mixed hyperlipidemia; R73.9 Hyperglycemia, unspecified; E55.9 Vitamin D deficiency, unspecified; R53.83 Other fatigue; Z00.00 Encounter for general adult medical examination without abnormal findings
CPT/HCPCS: 36415; 80053; 80061; 82306; 83036; 84439; 84443; 85025